=== PATIENT | female | born 1935 | race African-American/Black ===

== ENCOUNTER 2019-06-11 15:53 | Inpatient (IN) | payer OTHER ==
[~2019-06-11] VITALS: Ht 167.6 cm; Wt 65.5 kg
[2019-06-11] VITALS (9 sets, daily range): BP systolic 88–136; BP diastolic 35–71
[2019-06-11 16:19] LABS: BE(vivo) -12.7 mmol/L (-2 to +3); HCO3 11.7 mmol/L (22.0-26.0); PO2 76.4 mmHg (80.0-100.0); sO2 94.9 % (92.0-98.0)
[2019-06-11 16:20] LABS: PCO2 22.1 mmHg (35.0-45.0)
[2019-06-11 16:35] LABS: ABSOLUTE NEUTROPHILS 4.8 thou/uL (1.4-8.2); BASOPHILS 0.4 % (0.0-2.0); EOSINOPHILS 0.3 % (0.0-3.0); HEMATOCRIT 23.4 % (37.0-47.0); HEMOGLOBIN 7.3 gm/dL (12.0-15.0); LYMPHOCYTES 18.2 % (24.0-44.0); MCH 25.8 pg (26.0-34.0); MCHC 31.1 g/dL (28.0-37.0); MCV 83.1 fL (80.0-100.0); MONOCYTES 8.4 % (1.0-8.0); PLATELET COUNT 381 thou/uL (150-400); POLYS 72.7 % (36.0-66.0); RBC 2.82 mil/uL (4.20-5.00); RDW 18.6 % (10.5-14.5); WBC 6.6 thou/uL (4.0-11.0)
[2019-06-11 17:00] LABS: CALCIUM 9.1 mg/dL (8.5-10.1); CREATININE 1.5 mg/dL (0.6-1.0); POTASSIUM 4.5 mmol/L (3.5-5.1)
[2019-06-11 17:07] LABS: ALBUMIN 3.4 g/dL (3.4-5.0); TOTAL BILIRUBIN 0.4 mg/dL (<0.1-1.0)
[2019-06-11 17:18] LABS: TROPONIN-I 6.42 ng/mL (<0.06)
[2019-06-11 19:58] LABS: BE(vivo) -21.5 mmol/L (-2 to +3); HCO3 7.6 mmol/L (22.0-26.0)
[2019-06-11 19:59] LABS: pH 7.024 (7.360-7.450)
[2019-06-11 21:01] LABS: CALCIUM 7.4 mg/dL (8.5-10.1); CREATININE 1.5 mg/dL (0.6-1.0); POTASSIUM 4.7 mmol/L (3.5-5.1)
--- NOTE | 2019-06-11 21:02 | 2DMMODE ---
[facility] [address] [place] [address] 2 D/M-MODE ECHOCARDIOGRAM Name: ROSAS WALDEN Room #: 170-1 ADM IN M.R.#: [id number] Admission: 06/11/19 Attend Phys: Azam Flowers MD Discharge: Date of : 33 Report #: [id number] THIS REPORT FOR: cc: FAM - No family physician/PCP FAM - No family physician/PCP Stefan Cameron MD ~ APPROVED REPORT Study performed: 06/11/2019 19:41:24 EXAM: Comprehensive 2D, Doppler, and color-flow Echocardiogram Patient Location: Bedside Room #: ER Status: stat BSA: 1.70 HR: 76 bpm BP: 84/45 mmHg Rhythm: NSR Other Information Study Quality: Adequate Risk Factors: Cardiac Risk Factors: HTN, DM Indications Congestive Heart Failure Sepsis Dyspnea 2D Dimensions IVSd: 10.03 (7-11mm) LVOT Diam: 16.00 (18-24mm) LVDd: 45.77 mm PWd: 9.66 (7-11mm) Ascending Ao: 31.19 (22-36mm) LVDs: 37.87 (25-40mm) Aortic Root: 30.69 mm LV Single Plane 4CH: 51.81 % LV Single Plane 2CH: 54.41 % Biplane EF: 54.4 % Volumes Left Atrial Volume (Systole) Single Plane 4CH: 73.06 mL Single Plane 2CH: 64.37 mL LA ESV Index: 44.00 mL/m2 [facility] [address] [place] [address] 2 D/M-MODE ECHOCARDIOGRAM Name: ROSAS WALDEN Room #: 170-1 ADM IN M.R.#: [id number] Admission: 06/11/19 Attend Phys: Talia Fraire Discharge: Date of : 33 Report #: [id number] Mitral Valve E/A Ratio: 2.4 MV Decel. Time: 202.57 ms MV E Max Satnam.: 1.25 m/s MV A Satnam.: 0.53 m/s MV PHT: 58.75 ms IVRT: 51.90 ms TDI E/Lateral E': 25.00 E/Medial E': 17.86 Medial E' Satnam.: 0.07 m/s Lateral E' Satnam.: 0.05 m/s Pulmonary Valve PV Peak Satnam.: 0.73 m/s PV Peak Gr.: 2.13 mmHg Pulmonary Vein P Vein S: 0.49 m/s P Vein A: 0.27 m/s P Vein D: 0.54 m/s P Vein A Dur.: 107.3 msec P Vein S/D Ratio: 0.91 Tricuspid Valve TR Peak Satnam.: 2.99 m/s TR Peak Gr.: 35.69 mmHg Left Ventricle The left ventricle is normal size. There is normal LV segmental wall motion. There is normal left ventricular wall thickness. Left ventricular systolic function is borderline. LVEF is 50-55%. Moderate diastolic dysfunction is present (pseudonormal filling). Right Ventricle The right ventricle is normal size. The right ventricular systolic function is normal. Atria Left atrium is moderately dilated. The right atrium size is normal. Aortic Valve The Aortic valve is mildly sclerotic. No aortic regurgitation is present. There is no aortic valvular stenosis. Mitral Valve There is mitral annular calcification. Severe mitral regurgitation. [facility] [address] [place] [address] 2 D/M-MODE ECHOCARDIOGRAM Name: ROSAS WALDEN Room #: 170-1 ADM IN M.R.#: [id number] Admission: 06/11/19 Attend Phys: Talia Fraire Discharge: Date of : 33 Report #: [id number] No evidence of mitral valve stenosis. Tricuspid Valve The tricuspid valve is normal in structure. Moderate to severe tricuspid regurgitation. The tricuspid reguirgitant jet measures 36 mmHg. Unable to assess PA pressure. Pulmonic Valve The pulmonary valve is normal in structure. Mild pulmonic regurgitation. Great Vessels The aortic root is normal in size. The ascending aorta is normal in size. IVC is normal in size. Pt. is on ventilator. Pericardium There is no pericardial effusion. Large pleural effusion is noted. <Conclusion> The left ventricle is normal size. LVEF is 50-55%. Left atrium is moderately dilated. The Aortic valve is mildly sclerotic. There is mitral annular calcification. Severe mitral regurgitation. The tricuspid valve is normal in structure. Moderate to severe tricuspid regurgitation. The tricuspid reguirgitant jet measures 36 mmHg. Unable to assess PA pressure. There is no pericardial effusion. Large pleural effusion is noted. <ELECTRONICALLY SIGNED> By: Stefan Cameron MD 06/11/192099 99 99 Stefan Cameron MD /INF
[2019-06-11 21:24] LABS: BE(vivo) -20.5 mmol/L (-2 to +3); HCO3 9.3 mmol/L (22.0-26.0); PCO2 36.8 mmHg (35.0-45.0); PO2 86.7 mmHg (80.0-100.0); sO2 91.3 % (92.0-98.0)
[2019-06-11 21:25] LABS: pH 7.021 (7.360-7.450)
[2019-06-11 21:45] LABS: URINE BILIRUBIN NEGATIVE (Negative); URINE BLOOD NEGATIVE (Negative); URINE CLARITY CLOUDY; URINE COLOR YELLOW; URINE GLUCOSE-RANDOM* NEGATIVE (Negative); URINE KETONES TRACE (Negative); URINE LEUKOCYTES-REFLEX NEGATIVE (Negative); URINE NITRITE-REFLEX NEGATIVE (Negative); URINE PROTEIN (DIPSTICK) 3+ (Negative); URINE SPECIFIC GRAVITY >= 1.030 (1.005-1.035); URINE UROBILINOGEN 0.2 E.U./dl (0.2-1.0)
[2019-06-11 21:56] LABS: BACTERIA-REFLEX 1-9 Few /HPF (None Seen); SQUAMOUS 0-3 Few /LPF (0-3); URINE RBC 0-2 Rare /HPF (0-2); URINE WBC-REFLEX 0-5 Rare /HPF (0-5)
[2019-06-11 21:57] LABS: AMORPHOUS URATES Moderate /LPF (None Seen); HYALINE CASTS 0-3 Few /LPF (None Seen); MUCUS 4-6 Moderate strn/LPF (None Seen)
[2019-06-11 22:13] LABS: CALCIUM 7.7 mg/dL (8.5-10.1); CREATININE 1.7 mg/dL (0.6-1.0); POTASSIUM 3.9 mmol/L (3.5-5.1)
[2019-06-11 22:47] LABS: INR 1.1
[2019-06-11 23:17] LABS: INR 1.3; PROTIME 12.9 Seconds (9.3-11.4)
[2019-06-11 23:22] LABS: HEMATOCRIT 24.8 % (37.0-47.0); HEMOGLOBIN 7.6 gm/dL (12.0-15.0)
[2019-06-12] VITALS (96 sets, daily range): BP systolic 99–159; BP diastolic 30–77
[2019-06-12 00:09] LABS: BE(vivo) -17.3 mmol/L (-2 to +3); HCO3 9.8 mmol/L (22.0-26.0); PCO2 27.9 mmHg (35.0-45.0); PO2 185.7 mmHg (80.0-100.0); pH 7.165 (7.360-7.450); sO2 98.9 % (92.0-98.0)
[2019-06-12 01:28] LABS: CALCIUM 7.9 mg/dL (8.5-10.1); CREATININE 1.8 mg/dL (0.6-1.0)
[2019-06-12 05:06] LABS: HEMATOCRIT 28.3 % (37.0-47.0); MCH 27.4 pg (26.0-34.0); MCV 85.7 fL (80.0-100.0); RBC 3.3 mil/uL (4.20-5.00); RDW 19.2 % (10.5-14.5); WBC 17.2 thou/uL (4.0-11.0)
[2019-06-12 05:17] LABS: BE(vivo) -6.6 mmol/L (-2 to +3); HCO3 16.8 mmol/L (22.0-26.0); PCO2 26.4 mmHg (35.0-45.0); PO2 198.9 mmHg (80.0-100.0); pH 7.421 (7.360-7.450); sO2 99.4 % (92.0-98.0)
[2019-06-12 07:37] LABS: CALCIUM 7.6 mg/dL (8.5-10.1); CREATININE 1.6 mg/dL (0.6-1.0); POTASSIUM 3.8 mmol/L (3.5-5.1)
[2019-06-12 11:05] LABS: HEMATOCRIT 28.7 % (37.0-47.0); HEMOGLOBIN 9.4 gm/dL (12.0-15.0)
[2019-06-12 17:12] LABS: BE(vivo) -2.9 mmol/L (-2 to +3); HCO3 19.9 mmol/L (22.0-26.0); PCO2 28.2 mmHg (35.0-45.0); PO2 150.4 mmHg (80.0-100.0); pH 7.467 (7.360-7.450); sO2 99.1 % (92.0-98.0)
[2019-06-12 21:18] LABS: HEMATOCRIT 28.1 % (37.0-47.0)
[2019-06-12 21:21] LABS: CALCIUM 7.4 mg/dL (8.5-10.1); CREATININE 1.3 mg/dL (0.6-1.0)
[2019-06-12 21:23] LABS: POTASSIUM 2.8 mmol/L (3.5-5.1)
[2019-06-13] VITALS (48 sets, daily range): BP systolic 109–145; BP diastolic 54–83
[2019-06-13 05:50] LABS: HEMATOCRIT 28.3 % (37.0-47.0); HEMOGLOBIN 9.1 gm/dL (12.0-15.0); MCH 27.3 pg (26.0-34.0); MCHC 32.3 g/dL (28.0-37.0); MCV 84.5 fL (80.0-100.0); RBC 3.35 mil/uL (4.20-5.00); RDW 20.1 % (10.5-14.5); WBC 10.5 thou/uL (4.0-11.0)
[2019-06-13 06:13] LABS: CALCIUM 7.3 mg/dL (8.5-10.1); CREATININE 1.1 mg/dL (0.6-1.0); POTASSIUM 3.5 mmol/L (3.5-5.1)
[2019-06-13] MEDS ORDERED: FISH OIL 1,0001 EAC9 PO (11:20)
[2019-06-13] MEDS ORDERED: GLIPIZIDE 10 MG10 MG PO ×2 (11:21→11:26)
[2019-06-13] MEDS ORDERED: ACTOS15 MG PO (11:21)
[2019-06-13] MEDS ORDERED: NAPROSYN500 MG PO (11:22)
[2019-06-13] MEDS ORDERED: MELOXICAM15 MG PO (11:22)
[2019-06-13] MEDS ORDERED: SIMVASTATIN80 MG PO (11:23)
[2019-06-13] MEDS ORDERED: ADALAT CC60 MG PO (11:23)
[2019-06-13] MEDS ORDERED: HYDROCHLOROTHIA25 M2 PO (11:24)
[2019-06-13] MEDS ORDERED: SLOW FE142 MG PO (11:24)
[2019-06-13] MEDS ORDERED: ACCUPRIL40 MG PO (11:24)
[2019-06-13] MEDS ORDERED: METFORMIN HCL500 M3 PO (11:25)
[2019-06-13] MEDS ORDERED: ACTOS 30 MG TAB30 M1 PO (11:25)
[2019-06-14] VITALS (22 sets, daily range): BP systolic 103–154; BP diastolic 42–96
[2019-06-14 05:33] LABS: BE(vivo) -0.9 mmol/L (-2 to +3); HCO3 22.3 mmol/L (22.0-26.0); PCO2 31.6 mmHg (35.0-45.0); PO2 105.3 mmHg (80.0-100.0); pH 7.467 (7.360-7.450); sO2 98.2 % (92.0-98.0)
[2019-06-14 05:38] LABS: CALCIUM 7.7 mg/dL (8.5-10.1)
[2019-06-14 05:39] LABS: POTASSIUM 2.8 mmol/L (3.5-5.1)
[2019-06-14 08:32] LABS: HEMOGLOBIN 9.5 gm/dL (12.0-15.0); MCH 27.1 pg (26.0-34.0); MCHC 31.6 g/dL (28.0-37.0); MCV 85.8 fL (80.0-100.0); RBC 3.5 mil/uL (4.20-5.00); RDW 20.4 % (10.5-14.5); WBC 11.2 thou/uL (4.0-11.0)
[2019-06-14 10:45] LABS: BE(vivo) -1.9 mmol/L (-2 to +3); HCO3 21.8 mmol/L (22.0-26.0); PCO2 33.5 mmHg (35.0-45.0); PO2 105.7 mmHg (80.0-100.0); pH 7.432 (7.360-7.450)
[2019-06-14 16:49] LABS: CALCIUM 7.8 mg/dL (8.5-10.1); CREATININE 0.9 mg/dL (0.6-1.0); MAGNESIUM 1.4 mg/dL (1.8-2.4); POTASSIUM 3.5 mmol/L (3.5-5.1)
[2019-06-14 22:32] LABS: MAGNESIUM 1.7 mg/dL (1.8-2.4); POTASSIUM 3.8 mmol/L (3.5-5.1)
[2019-06-15] VITALS (27 sets, daily range): BP systolic 117–164; BP diastolic 45–89
[2019-06-15 05:30] LABS: HEMATOCRIT 27.8 % (37.0-47.0); HEMOGLOBIN 8.9 gm/dL (12.0-15.0); MCH 27.2 pg (26.0-34.0); RBC 3.27 mil/uL (4.20-5.00); RDW 20.6 % (10.5-14.5)
[2019-06-15 06:05] LABS: CALCIUM 7.6 mg/dL (8.5-10.1); CREATININE 0.9 mg/dL (0.6-1.0); POTASSIUM 3.6 mmol/L (3.5-5.1)
[2019-06-16] VITALS (22 sets, daily range): BP systolic 114–151; BP diastolic 52–82
[2019-06-16 05:27] LABS: HEMATOCRIT 29.3 % (37.0-47.0); HEMOGLOBIN 9.4 gm/dL (12.0-15.0); MCH 27.3 pg (26.0-34.0); MCHC 32.1 g/dL (28.0-37.0); MCV 85.1 fL (80.0-100.0); RBC 3.44 mil/uL (4.20-5.00); RDW 20.7 % (10.5-14.5); WBC 7.7 thou/uL (4.0-11.0)
[2019-06-16 10:41] LABS: CALCIUM 8.6 mg/dL (8.5-10.1); CREATININE 0.9 mg/dL (0.6-1.0); POTASSIUM 3.2 mmol/L (3.5-5.1)
--- NOTE | 2019-06-16 16:46 | P ---
[facility] [address] [address] PROCEDURE REPORT Name: ROSAS WALDEN Room #: [facility] IN M.R.#: [id number] Admission: 06/11/19 Attend Phys: Azam Flowers MD Discharge: Date of : 33 Report #: [id number] THIS REPORT FOR: cc: NESSA - No family physician/PCP NESSA - No family physician/PCP Simone Potter MD ~ CC: Azam Torres [facility] physician/PCP Stefan Reyes INPATIENT UPPER ENDOSCOPY REPORT BRIEF HISTORY: The patient is an 84-year-old woman who was found down at home with evidence of hematemesis. She also had a non-ST segment myocardial infarction. She has been on a pantoprazole drip. She is in the Intensive Care Unit on a ventilator with plans to wean and remove her from the ventilator soon. GI evaluation was requested prior to extubation. PREOPERATIVE DIAGNOSIS: Upper gastrointestinal bleeding. POSTOPERATIVE DIAGNOSES: 1. Nonbleeding duodenal channel ulcer. 2. Moderately severe diffuse gastritis, possibly atrophic gastritis. MEDICATIONS: The patient is currently on propofol drip in Intensive Care Unit and sedated. No further sedation was given. SPECIMEN: Biopsies of gastric mucosa, rule out H. pylori. ESTIMATED BLOOD LOSS: 3 mL. PROCEDURE: EGD with biopsy. FINDINGS: The procedure was discussed with the patient's at the bedside. Potential risks, benefits and complications were discussed. She indicates she understands and desired that we proceed. DESCRIPTION OF PROCEDURE: The patient was intubated on a ventilator, supine in the bed with her head raised about 30 degrees. In addition to the endotracheal tube, there was an orogastric tube. Subsequently, the Olympus video endoscope was inserted in the cervical esophagus under direct vision without difficulty. Examination of this organ through its entire length revealed normal esophageal mucosa down the squamocolumnar junction. Squamocolumnar junction was inspected and noted to be unremarkable. No evidence of ulcers or erosions. There was no blood in the esophagus. A hiatus hernia was not seen. Scope was advanced in [facility] [address] [place] [address] PROCEDURE REPORT Name: ROSAS WALDEN Room #: 245-P [facility] IN M.R.#: [id number] Admission: 06/11/19 Attend Phys: Azam Flowers MD Discharge: Date of : 33 Report #: [id number] the stomach, which was examined on end view as well as retroflexed views. There was a moderately severe diffuse gastritis. She may have an atrophic gastritis as well. The mucosa was intact without evidence of ulcers or bleeding. There was no blood in the stomach. Upon retroflexion, no mass lesions were seen. The scope was advanced in the pylorus and when we get into the pylorus, there was a duodenal ulcer that was linear and extended probably 12-15 mm in the duodenal bulb, it was about 3-4 mm wide. The base was clean. There was no stigmata of bleeding. There was no blood or black material. No mass lesions were seen. Beyond that, the duodenum was completely normal down to the third portion. At that point, the scope was slowly withdrawn and careful circumferential views confirmed the above findings. The patient tolerated the procedure well. We also obtained biopsy of the gastritis. DISPOSITION: The patient with hematemesis. She clearly has a duodenal ulcer. I do not see stigmata of bleeding at this point in time. She has been on a pantoprazole continuous drip for several days. We will change her to IV push. It will be okay to resume tube feedings. We will obtain a KUB to check position of the NG tube as it potentially could have been displaced during the removal of the endoscope. In addition, suggest she return in 8-12 weeks for repeat EGD to ensure complete healing of her ulcer. Discussed with her . She had been using nonsteroidals. She should avoid use of nonsteroidals in the future. <ELECTRONICALLY SIGNED> By: Simone Potter MD 06/16/19 1646 [id number] [id number] Simone Potter MD /nt
[2019-06-17] VITALS (19 sets, daily range): BP systolic 119–162; BP diastolic 58–85
[2019-06-17 06:13] LABS: HEMATOCRIT 29.2 % (37.0-47.0); HEMOGLOBIN 9.2 gm/dL (12.0-15.0); MCH 26.6 pg (26.0-34.0); MCHC 31.4 g/dL (28.0-37.0); MCV 84.8 fL (80.0-100.0); RBC 3.45 mil/uL (4.20-5.00); RDW 20.1 % (10.5-14.5)
[2019-06-17 06:21] LABS: ALBUMIN 2.5 g/dL (3.4-5.0); CALCIUM 8.6 mg/dL (8.5-10.1); CREATININE 0.9 mg/dL (0.6-1.0); POTASSIUM 3.6 mmol/L (3.5-5.1); TOTAL BILIRUBIN 0.3 mg/dL (<0.1-1.0); TOTAL PROTEIN 5.6 g/dL (6.4-8.2)
[2019-06-17 10:44] LABS: BE(vivo) -1.1 mmol/L (-2 to +3); HCO3 22.4 mmol/L (22.0-26.0); PCO2 33.4 mmHg (35.0-45.0); PO2 115.8 mmHg (80.0-100.0); pH 7.444 (7.360-7.450); sO2 98.4 % (92.0-98.0)
--- NOTE | 2019-06-17 17:07 | PATH ---
[facility] [address] [place] [address] PATHOLOGY RPT PROCEDURE Name: ROSAS OLMSTEAD Room #: 245-P ADM IN M.R.#: [id number] Admission: 06/11/19 Date of : 33 Discharge: Report #: [id number] Path Case #: [id number] LCA Accession Number: [id number] . 01 Material submitted: . stomach - BX OF GASTRITIS . 01 Clinical history: . GI bleed, R/O H. pylori . 02 Diagnosis: Gastric mucosa, gastritis R/O H. pylori, endoscopic biopsy: - Mild chronic active gastritis with focal intestinal metaplasia. - Negative for atrophy or dysplasia. - Negative for Helicobacter pylori (properly controlled immunohistochemical stain performed). . (IUV:martha; 06/17/2019) QMS 06/17/2019 1132 Local . 02 Comment: An intensive search for Helicobacter pylori-like organisms is negative. Absence of such organisms does not entirely exclude the possibility and may be due to sampling. Other possible etiologies may include chemical gastritis, autoimmune gastritis, gastritis associated with inflammatory bowel disease. Please correlate with clinical, endoscopic, and microbiological studies if clinically indicated. (IUV:martha; 06/17/2019) . 02 Electronically signed: . Cony Conde MD, Pathologist NPI- [id number] . 01 Gross description: . The specimen is received in formalin, labeled "Rosas Olmstead, biopsy of gastritis to R/O H. pylori". Received are six segments of pale reyna soft tissue ranging in size from 0.2 to 0.4 cm in maximum dimensions. The specimen is submitted entirely in cassette A1. (CAA; 06/16/2019) QAC/QAC 06/16/2019 1109 Local . 02 Pathologist provided ICD-10: K29.50 . 02 CPT . 401724, N37061 Specimen Comment: A courtesy copy of this report has been sent to [phone] [address] PATHOLOGY RPT PROCEDURE Name: ROSAS OLMSTEAD Room #: [facility] IN M.R.#: [id number] Admission: 06/11/19 Date of : 33 Discharge: Report #: [id number] Path Case #: [id number] Specimen Comment: [id number] Specimen Comment: Report sent to and Performed at: [address], [place], [place] [id number] MD Ryland Martinez MD Phone: [phone] Performed at: [address] [id number] MD Cony Conde MD Phone: [phone]
[2019-06-18] VITALS (14 sets, daily range): BP systolic 118–157; BP diastolic 55–92
[2019-06-18 04:48] LABS: HEMATOCRIT 30.1 % (37.0-47.0); HEMOGLOBIN 9.5 gm/dL (12.0-15.0); MCH 26.8 pg (26.0-34.0); MCHC 31.5 g/dL (28.0-37.0); MCV 85.1 fL (80.0-100.0); RBC 3.53 mil/uL (4.20-5.00); RDW 20.5 % (10.5-14.5); WBC 7.4 thou/uL (4.0-11.0)
[2019-06-18 05:55] LABS: CREATININE 0.6 mg/dL (0.6-1.0); POTASSIUM 3.2 mmol/L (3.5-5.1)
[2019-06-19 00:08] VITALS: BP 138/57
[2019-06-19 04:08] VITALS: BP 150/67
[2019-06-19 07:26] LABS: CALCIUM 9.2 mg/dL (8.5-10.1); CREATININE 0.7 mg/dL (0.6-1.0); POTASSIUM 3.2 mmol/L (3.5-5.1)
[2019-06-19 08:08] VITALS: BP 159/74
[2019-06-19 14:31] VITALS: BP 134/57
[2019-06-19 20:00] VITALS: BP 138/57
[2019-06-19 23:26] VITALS: BP 130/55
[2019-06-20 04:26] VITALS: BP 159/66
[2019-06-20 07:30] VITALS: BP 148/66
[2019-06-20 11:15] VITALS: BP 121/43
[2019-06-20 17:00] VITALS: BP 129/52
[2019-06-20 19:55] VITALS: BP 131/51
[2019-06-21 05:40] VITALS: BP 126/68
[2019-06-21 07:24] LABS: CALCIUM 9.5 mg/dL (8.5-10.1); CREATININE 0.9 mg/dL (0.6-1.0); POTASSIUM 3.5 mmol/L (3.5-5.1)
[2019-06-21 08:13] VITALS: BP 136/75
[2019-06-21 08:14] LABS: HEMATOCRIT 33.9 % (37.0-47.0); HEMOGLOBIN 10.5 gm/dL (12.0-15.0); MCH 26.6 pg (26.0-34.0); MCV 85.9 fL (80.0-100.0); RBC 3.95 mil/uL (4.20-5.00); RDW 21.1 % (10.5-14.5); WBC 8.1 thou/uL (4.0-11.0)
[2019-06-21 12:04] VITALS: BP 114/54
[2019-06-21 16:26] VITALS: BP 127/51
[2019-06-21 19:51] VITALS: BP 114/46
[2019-06-22] VITALS (12 sets, daily range): BP systolic 121–158; BP diastolic 54–79
--- NOTE | 2019-06-22 07:22 | HC ---
[facility] [place] [address] CONSULTATION Name: ROSAS WALDEN Room #: 215-P ADM IN M.R.#: [id number] Admission: 06/11/19 Attend Phys: Azam Flowers MD Discharge: Date of : 33 Report #: [id number] THIS REPORT FOR: cc: NESSA - No family physician/PCP NESSA - No family physician/PCP Kuldip Rubi MD ~ CC: Azam Torres [facility] physician/PCP Stefan Reyes DATE OF SERVICE: 06/18/2019 CHIEF COMPLAINT: Left fifth toe ulceration. HISTORY OF PRESENT ILLNESS: This is an 84-year-old female patient who was admitted to the hospital on 06/11/2019. She was admitted with a non-ST segment elevated myocardial infarction, respiratory failure and sepsis. At some point, it was noted that she had some ulceration or color change to her left fifth toe. Her states that the toe had been giving her problems prior to her hospitalization. She is not able to provide much information about herself right now, but I have been asked to see her with regard to wound care issues. PAST MEDICAL HISTORY: Positive for history of GI bleeding, type 2 diabetes mellitus and hypertension. MEDICATIONS: Include albuterol, furosemide, glucagon, insulin, Mag-Ox, metoprolol, midazolam, morphine, Zofran, potassium, ferrous sulfate, fish oil, glipizide, hydrochlorothiazide, meloxicam, metformin, Naprosyn, nifedipine, pioglitazone, quinapril, simvastatin. ALLERGIES: No known drug allergies. SOCIAL HISTORY: Negative for alcohol or tobacco use. FAMILY HISTORY: Noncontributory. REVIEW OF SYSTEMS: Really not obtainable due to the patient's diminished level of consciousness. She moans and nods her head occasionally. Any pertinent review of systems are noted above in history of present illness. PHYSICAL EXAMINATION: VITAL SIGNS: At this time include temperature 36.3, pulse rate 100, respiratory rate of 13, blood pressure of 134/57. GENERAL: This is a chronically ill-appearing female patient who appears to be [facility] [address] [place] [address] CONSULTATION Name: ROSAS WALDEN Room #: 215-P [facility] IN M.R.#: [id number] Admission: 06/11/19 Attend Phys: Azam Flowers MD Discharge: Date of : 33 Report #: [id number] in minimal distress. HEENT: Head is normocephalic. Nose and throat are clear. NECK: Supple. HEART: Regular rhythm without murmur. LUNGS: Clear. ABDOMEN: Soft. Bowel sounds present. EXTREMITIES: Demonstrates some color change and some moist eschar on the dorsal medial aspect of the left fifth toe. It is not overtly infected, although palpation of this area does seem to elicit some pain. NEUROLOGIC: The patient is arousable, but not answering questions. She appears to move symmetrically. LABORATORY STUDIES: White blood cell count 7.4 with hemoglobin 9.5. Sodium 144, potassium 3.2, chloride 107, CO2 of 33, BUN 17, creatinine 0.6, glucose of 99, magnesium is 1.0, calcium is 8.0. Protime is 12.9, INR is 1.3. Albumin is 2.5. CLINICAL IMPRESSION: 1. Ulceration/ischemia to the left fifth toe. 2. Diabetes mellitus. 3. History of myocardial infarction. 4. Peripheral vascular disease by clinical examination. 5. Bilateral lower extremity edema, left greater than right. 6. Acute diastolic heart failure with severe mitral regurgitation. 7. Recent gastrointestinal bleed. 8. Acute renal failure, improving. 9. Moderate protein-calorie malnutrition. RECOMMENDATIONS: At this point in time, we will recommend Betadine paint to the left fifth toe. I will otherwise leave this area open to air. She will need PRAFO boots for pressure prophylaxis. I will recommend an arterial Doppler. Consider vascular intervention if significant findings are present. I reviewed findings and recommendations with the patient's . I appreciate being asked to see her in consultation. <ELECTRONICALLY SIGNED> By: Kuldip Rubi MD 06/22/19 0722 1857 0010 Kuldip Rubi MD /nt
[2019-06-23] VITALS: BP 131/54
[2019-06-23 04:00] VITALS: BP 146/63
[2019-06-23 04:08] LABS: HEMATOCRIT 29.2 % (37.0-47.0); HEMOGLOBIN 9.3 gm/dL (12.0-15.0); MCH 27.3 pg (26.0-34.0); MCHC 31.9 g/dL (28.0-37.0); MCV 85.3 fL (80.0-100.0); RBC 3.42 mil/uL (4.20-5.00); RDW 21.6 % (10.5-14.5); WBC 7.6 thou/uL (4.0-11.0)
[2019-06-23 04:33] LABS: CALCIUM 8.9 mg/dL (8.5-10.1); CREATININE 0.9 mg/dL (0.6-1.0); POTASSIUM 3.1 mmol/L (3.5-5.1)
[2019-06-23 07:30] VITALS: BP 166/72
[2019-06-23 11:15] VITALS: BP 127/49
[2019-06-23 16:30] VITALS: BP 136/60
[2019-06-23 20:27] VITALS: BP 126/42
[2019-06-24 05:05] VITALS: BP 153/77
[2019-06-24 05:36] LABS: CALCIUM 8.6 mg/dL (8.5-10.1); CREATININE 0.8 mg/dL (0.6-1.0); POTASSIUM 3.4 mmol/L (3.5-5.1)
[2019-06-24 07:00] VITALS: BP 144/62
[2019-06-24 11:30] VITALS: BP 113/52
[2019-06-24 16:52] LABS: MAGNESIUM 1.1 mg/dL (1.8-2.4); POTASSIUM 3.6 mmol/L (3.5-5.1)
[2019-06-24 17:00] VITALS: BP 128/53
[2019-06-24 20:26] VITALS: BP 122/47
[2019-06-25 05:20] VITALS: BP 129/59
[2019-06-25 05:58] LABS: CALCIUM 8.5 mg/dL (8.5-10.1); CREATININE 0.9 mg/dL (0.6-1.0); MAGNESIUM 1.2 mg/dL (1.8-2.4); POTASSIUM 3.4 mmol/L (3.5-5.1)
[2019-06-25 07:30] VITALS: BP 134/54
[2019-06-25 11:30] VITALS: BP 140/46
--- NOTE | 2019-06-25 13:35 | CATHLAB ---
[facility] [place] [address] [address] [place] [address] INVASIVE PROCEDURE REPORT Name: ROSAS WALDEN Room #: 215-P ADM IN M.R.#: [id number] Admission: 06/11/19 Attend Phys: Azam Flowers MD Discharge: Date of : 33 Report #: [id number] THIS REPORT FOR: cc: FAM - No family physician/PCP FAM - No family physician/PCP Stefan Cameron MD ~ APPROVED REPORT Study performed: 06/22/2019 16:38:56 Patient Details The patient is a 84 year-old female Event Personnel Stefan Cameron Nonprofit Manager, Tena Celeste RN RN, Atilio Rodgers Monitor, Jemma James RN RN, Gloria Alejo Scrub, Tabitha Huston RTR, TERESA Scrub, Finesse Sims RTR Monitor, Tena Celeste RN wire chief Performed Left Heart Catheterization, 6 fr Mynx Control Indication Chest pain Procedure Narrative A 6 fr 11cm cordis sheath was inserted into the RFA^. Coronary angiography was performed using coronary diagnostic catheters. The right coronary system was accessed and visualized with a JR4 catheter. The left coronary system was accessed and visualized with a JL4 catheter. The left ventricle was accessed and visualized with a JR4 catheter. Closure device was deployed with a 6 Fr MYNX CONTROL 6F/7F L#[id number]. The patient tolerated the procedure well and there were no complications associated with the procedure. There was no hematoma. Intraoperative Conscious Sedation Sedation start time: 1628 Case end Time: 1724 Fentanyl mcg Versed mg No additonal sedation was given after renal stent placement with dr Rodrigez Fluoro Time: 1.23 minutes [facility] [address] [place] [address] INVASIVE PROCEDURE REPORT Name: ROSAS WALDEN Room #: 215-P [facility] IN .R.#: [id number] Admission: 06/11/19 Attend Phys: Talia Fraire Discharge: Date of : 33 Report #: [id number] Dose: DAP 1298.80 cGycm2 200 mGy Contrast Type and Amount: Omnipaque 20 ml Diagnostic Cath Left Main Normal origin and caliber. It bifurcates left anterior descending left circumflex. Has a eccentric ostial lesion of at least 75% stenosis. The distal portion has a mild 30% plaque. LAD Moderate caliber type II vessel. Heavily calcified on fluoroscopy. There is a proximal portion that appears to be tapered of less than 50%. It then continues in the anterior interventricular sulcus to septal and diagonal branches. Moderate luminal irregularities are noted in the mid portion but otherwise mild irregularities as it reaches the apex and trifurcates is a terminal branch Diagonal 1 Small-caliber vessel with moderate irregularities Circumflex Totally occluded proximally. OM2 Fills retrograde from collaterals faintly Right Coronary Multiple moderate caliber vessel of normal origin. Has diffuse moderate irregularities but his course. He proceeds posteriorly giving rise to posterior descending artery and small posterior wall branch. R PDA Small-caliber vessel with moderate irregularities throughout its entire course. Ramus Small caliber vessel has a subtotal ostial lesion arising from the left main. It is tortuous in its proximal course Left Ventriculography Left Ventriculography was not performed. Hemodynamics The aortic pressure is 185/80 mmHg with a mean of 103 mmHg. The left ventricular pressure is 152/16 mmHg with a mean of mmHg. The left ventricular end diastolic pressure is 35 mmHg. PCI Technique Lesion Percutaneous coronary intervention was performed on the Left Renal. Conclusion 1. Severe multivessel coronary artery disease including a high-grade proximal left main stenosis 2. Abnormal hemodynamics with elevated left ventricular end-diastolic pressures Recommendations [facility] [address] [place] [address] INVASIVE PROCEDURE REPORT Name: ROSAS WALDEN Room #: 215-P ADM IN M.R.#: [id number] Admission: 06/11/19 Attend Phys: Talia Fraire Discharge: Date of : 33 Report #: [id number] We'll discuss with patient and family the options of percutaneous versus surgical revascularization. We'll have a surgical opinion for the suitability of the patient for surgical revascularization. We'll plan according to recommendations of surgery and patient and family's desires and wishes. <ELECTRONICALLY SIGNED> By: Stefan Cameron MD 06/25/19 1334 1334 133 Stefan Cameron MD /INF
[2019-06-25 16:30] VITALS: BP 119/59
[2019-06-25 17:54] LABS: MAGNESIUM 1.2 mg/dL (1.8-2.4); POTASSIUM 4.2 mmol/L (3.5-5.1)
[2019-06-25 19:36] VITALS: BP 120/49
[2019-06-26 04:17] VITALS: BP 145/58
[2019-06-26 06:53] LABS: CALCIUM 9.2 mg/dL (8.5-10.1); MAGNESIUM 1.3 mg/dL (1.8-2.4); POTASSIUM 4.4 mmol/L (3.5-5.1)
[2019-06-26 07:45] VITALS: BP 163/47
[2019-06-26 08:00] VITALS: BP 143/65
[2019-06-26 12:30] VITALS: BP 125/63
[2019-06-26 17:40] VITALS: BP 146/67
[2019-06-27] VITALS (7 sets, daily range): BP systolic 126–144; BP diastolic 50–61
[2019-06-27 05:16] LABS: CALCIUM 8.4 mg/dL (8.5-10.1); CREATININE 0.9 mg/dL (0.6-1.0); MAGNESIUM 1.8 mg/dL (1.8-2.4); POTASSIUM 3.5 mmol/L (3.5-5.1)
[2019-06-28 04:57] VITALS: BP 143/72
[2019-06-28 08:00] VITALS: BP 137/51
--- NOTE | 2019-06-28 08:46 | HC ---
[facility] [place] [address] CONSULTATION Name: ROSAS WALDEN Room #: 215-P ADM IN M.R.#: [id number] Admission: 06/11/19 Attend Phys: Azam Flowers MD Discharge: Date of : 33 Report #: [id number] THIS REPORT FOR: cc: NESSA - No family physician/PCP NESSA - No family physician/PCP Simone Mccurdy MD ~ CC: Azam SZYMANSKI physician/PCP Stefan Reyes DATE OF SERVICE: 06/22/2019 We were asked by Dr. Cameron to see the patient. HISTORY OF PRESENT ILLNESS: The patient is an 84-year-old admitted through the Emergency Department on 06/11 with shortness of breath. The patient describes this as "falling out." The patient states she had had shortness of breath and chest pain at home for a week. According to the notes, when the EMS arrived at the scene, the patient was lying in her stool in bed, diaphoretic with an O2 sat of 68% on room air that increased to 98% on oxygen therapy. The patient was tachycardic, but had normal blood pressure at that time. The patient was admitted to the ER and intubated and had a central line placed that evening. PAST MEDICAL HISTORY: Significant for GI bleed, type 2 diabetes mellitus and hypertension. MEDICATIONS IN THE HOSPITAL: Included albuterol, Lasix, insulin, metoprolol, morphine, iron, glipizide, hydrochlorothiazide, meloxicam, metformin, Naprosyn, nifedipine, pioglitazone, quinapril and simvastatin. ALLERGIES: None known. FAMILY HISTORY: Not contributory. REVIEW OF SYSTEMS: Not obtainable at the time of admission. The patient states she is doing much better since that time in the hospital. PHYSICAL EXAMINATION: VITAL SIGNS: Temperature 37.1, heart rate 86, respiratory rate 18, blood pressure 127/49. GENERAL: The patient is in bed, seems comfortable, but relatively low energy. Answers questions appropriately. [facility] [address] [place] [address] CONSULTATION Name: ROSAS WALDEN Room #: [address] [place] [address] IN M.R.#: [id number] Admission: 06/11/19 Attend Phys: Azam Flowers MD Discharge: Date of : 33 Report #: [id number] HEENT: No scleral icterus. Pupils are round, equal. NECK: No mass. I do not hear any bruits. CHEST: Clear to auscultation. HEART: Rhythm regular with a loud systolic murmur at the left sternal border suggestive of mitral incompetence. ABDOMEN: Soft. EXTREMITIES: The patient has feet wrapped and has pressure relieving booties on. NEUROLOGIC: No motor or sensory dysfunction. MUSCULOSKELETAL: No obvious bone or joint asymmetry or deformity. No clubbing or cyanosis. Trace pedal edema. HOSPITAL COURSE: We note that the patient was intubated on admission and remained so for approximately a week. The patient had evidence of a non-STEMI and cardiac catheterization was done by Dr. Cameron that shows a total occlusion of the circumflex, right coronary has aytv-ya-bqhclkma diffuse disease and left main has approximately 75% proximal lesion. Lower extremity arteriography was also done and this shows infrapopliteal occlusive disease. I discussed the case with Dr. Cameron and the patient has severe coronary and peripheral vascular disease. The patient has multiple medical issues and I think with her advanced age and comorbid factors angioplasty would be a less morbid and possibly safer intervention for the patient with good ventricular function. We are likely to get the patient through surgery safely; however, I would anticipate a prolonged hospital course and would expect a prolonged stay in a halfway or rehabilitation unit, at which time some of the other comorbid factors might become more significant. At this point, I think surgery is not in the patient's best interest. Thank you for the consult. <ELECTRONICALLY SIGNED> By: Simone Mccurdy MD 06/28/19 0846 1234 1940 Simone Mccurdy MD /nt
[2019-06-28 09:54] LABS: MAGNESIUM 1.5 mg/dL (1.8-2.4)
[2019-06-28 11:30] VITALS: BP 132/47
[2019-06-28 16:18] VITALS: BP 132/59
[2019-06-28 20:30] VITALS: BP 132/72; BP 136/48
[2019-06-29 04:45] VITALS: BP 153/73
[2019-06-29 07:20] VITALS: BP 156/78
[2019-06-29 10:16] LABS: HEMATOCRIT 33.3 % (37.0-47.0); HEMOGLOBIN 10.4 gm/dL (12.0-15.0); MCH 27.1 pg (26.0-34.0); MCHC 31.1 g/dL (28.0-37.0); MCV 87.1 fL (80.0-100.0); RBC 3.82 mil/uL (4.20-5.00); RDW 22.2 % (10.5-14.5)
[2019-06-29 10:25] LABS: CALCIUM 9.1 mg/dL (8.5-10.1); CREATININE 0.9 mg/dL (0.6-1.0); POTASSIUM 4.3 mmol/L (3.5-5.1)
[2019-06-29 11:30] VITALS: BP 153/72
[2019-06-29 16:00] VITALS: BP 136/52
[2019-06-29 19:48] VITALS: BP 117/44
[2019-06-30 03:59] VITALS: BP 132/48
[2019-06-30 05:22] LABS: HEMATOCRIT 26.9 % (37.0-47.0); HEMOGLOBIN 8.7 gm/dL (12.0-15.0); MCH 27.5 pg (26.0-34.0); MCHC 32.4 g/dL (28.0-37.0); MCV 84.7 fL (80.0-100.0); RBC 3.18 mil/uL (4.20-5.00); RDW 21.9 % (10.5-14.5); WBC 5.5 thou/uL (4.0-11.0)
[2019-06-30 05:33] LABS: CALCIUM 8.5 mg/dL (8.5-10.1); CREATININE 0.8 mg/dL (0.6-1.0); MAGNESIUM 1.4 mg/dL (1.8-2.4); POTASSIUM 3.4 mmol/L (3.5-5.1)
[2019-06-30 09:23] VITALS: BP 158/75
[2019-06-30 11:56] VITALS: BP 150/63
[2019-06-30 16:47] VITALS: BP 136/60
[2019-06-30 20:10] VITALS: BP 132/45
[2019-07-01 00:15] VITALS: BP 116/47
[2019-07-01 04:45] VITALS: BP 139/54
[2019-07-01 08:15] LABS: MAGNESIUM 1.3 mg/dL (1.8-2.4); POTASSIUM 3.8 mmol/L (3.5-5.1)
[2019-07-01 08:18] VITALS: BP 155/54
--- NOTE | 2019-07-01 08:25 | EKG ---
[facility] [place] [address] ELECTROCARDIOGRAM REPORT Name: ROSAS WALDEN Room #: 215-P ADM IN M.R.#: [id number] Admission: 06/11/19 Attend Phys: Azam Flowers MD Discharge: Date of : 33 Report #: [id number] THIS REPORT FOR: cc: NESSA - Skylar family physician/PCP NESSA - Skylar family physician/PCP Mookie Washington MD [facility] THIS REPORT FOR: //name// [facility] Test Date: 2019-07-01 Test Time: 07:28:21 Pat Name: ROSAS WALDEN Department: Room: 215 Gender: F Basket Braider: Nelly LAO : 1935 Requested By: Jacqueline Echeverria Order Number: [id number] MD: Mookie Washington Measurements Intervals [place] Rate: 85 P: 71 IN: 142 QRS: -47 QRSD: 115 T: 51 QT: 442 QTc: 526 Interpretive Statements Sinus rhythm LAD, consider left anterior fascicular block Compared to ECG 06/14/2019 07:43:24 Sinus tachycardia no longer present Electronically Signed On 07-01-2019 8:23:57 IN FLIGHT TECHNICIAN by Mookie Washington [email or web address] <ELECTRONICALLY SIGNED> By: Mookie Washington MD, [facility] 07/01/19 0823 0728 Mookie Washington MD, [facility] /EPI
[2019-07-01 09:01] LABS: HEMATOCRIT 30.8 % (37.0-47.0); HEMOGLOBIN 9.8 gm/dL (12.0-15.0); MCH 27.2 pg (26.0-34.0); MCHC 31.9 g/dL (28.0-37.0); MCV 85.2 fL (80.0-100.0); RBC 3.61 mil/uL (4.20-5.00); RDW 21.7 % (10.5-14.5); WBC 9.1 thou/uL (4.0-11.0)
[2019-07-01 09:04] LABS: CALCIUM 8.5 mg/dL (8.5-10.1); CREATININE 0.9 mg/dL (0.6-1.0); POTASSIUM 3.8 mmol/L (3.5-5.1)
[2019-07-01 11:04] VITALS: BP 125/37
[2019-07-01] MEDS ORDERED: CLOPIDOGREL75 MG PO (12:16)
[2019-07-01] MEDS ORDERED: LOPRESSOR25 PER TUBE (12:17)
[2019-07-01] MEDS ORDERED: PROTONIX40 M1 PO (12:29)
[2019-07-01] MEDS ORDERED: TORSEMIDE20 MG PO (12:29)
[2019-07-01] MEDS ORDERED: ASA81BEC PO (12:30)
[2019-07-01] MEDS ORDERED: LIPITOR40 MG PO (12:31)
--- NOTE | 2019-07-03 15:25 | EKG ---
[facility] [place] [address] ELECTROCARDIOGRAM REPORT Name: ROSAS WALDEN Room #: 215-P [facility] IN M.R.#: [id number] Admission: 06/11/19 Attend Phys: Azam Flowers MD Discharge: 07/01/19 Date of : 33 Report #: [id number] THIS REPORT FOR: cc: NESSA - No family physician/PCP FAM - No family physician/PCP Juancarlos Barajas MD ~ THIS REPORT FOR: //name// [facility] Test Date: 2019-06-12 Test Time: 08:50:51 Pat Name: ROSAS WALDEN Department: Room: [facility] P Gender: F Machine Printer: OLEKSANDR : 1935 Requested By: Stefan Cameron Order Number: [id number] MD: Juancarlos Barajas Measurements Intervals [place] Rate: 102 P: 44 MS: 134 QRS: -50 QRSD: 109 T: 180 QT: 354 QTc: 462 Interpretive Statements Sinus tachycardia LAD, consider left anterior fascicular block Abnormal R-wave progression, late transition Abnormal T, consider ischemia, lateral leads Compared to ECG 06/11/2019 17:30:51 Electronically Signed On 06-12-2019 11:28:26 LEGAL RECEPTIONIST by Juancarlos Barajas [email or web address] <ELECTRONICALLY SIGNED> By: Juancarlos Barajas MD 06/12/19 1128 0850 Juancarlos Barajas MD /EPI
--- NOTE | 2019-07-03 15:25 | EKG ---
[facility] [place] [address] ELECTROCARDIOGRAM REPORT Name: ROSAS WALDEN Room #: 215-P [facility] IN M.R.#: [id number] Admission: 06/11/19 Attend Phys: Azam Flowers MD Discharge: 07/01/19 Date of : 33 Report #: [id number] THIS REPORT FOR: cc: FAM - No family physician/PCP FAM - No family physician/PCP Mookie Washington MD [facility] ~ THIS REPORT FOR: //name// [facility] ED Test Date: 2019-06-11 Test Time: 17:30:51 Pat Name: ROSAS WALDEN Department: Room: [facility] Gender: F Sales Project Coordinator: [place] : 1935 Requested By: Mela Hare Order Number: [id number] MD: Mookie Washington Measurements Intervals [place] Rate: 96 P: 63 ID: 137 QRS: -45 QRSD: 129 T: 148 QT: 373 QTc: 472 Interpretive Statements Sinus rhythm Nonspecific IVCD with LAD Repolarization abnormality, consider ischemia No previous ECG available for comparison Electronically Signed On 06-12-2019 8:04:43 PRECAST MOLDER by Mookie Washington [email or web address] <ELECTRONICALLY SIGNED> By: Mookie Washington MD, FACC 06/12/19 0804 1730 1730 Mookie Washington MD, [facility] /EPI
--- NOTE | 2019-07-03 15:25 | EKG ---
[facility] [place] [address] ELECTROCARDIOGRAM REPORT Name: ROSAS WALDEN Room #: 215-P [facility] IN M.R.#: [id number] Admission: 06/11/19 Attend Phys: Azam Flowers MD Discharge: 07/01/19 Date of : 33 Report #: [id number] THIS REPORT FOR: cc: NESSA - No family physician/PCP FAM - No family physician/PCP Mookie Washington MD [facility] ~ THIS REPORT FOR: //name// [facility] ED Test Date: 2019-06-11 Test Time: 16:00:21 Pat Name: ROSAS WALDEN Department: Room: [facility] Gender: F Steel Rule Die Maker: NETTE : 1935 Requested By: Mela Hare Order Number: [id number] MD: Mookie Washington Measurements Intervals [place] Rate: 106 P: 80 MN: 139 QRS: -48 QRSD: 132 T: 168 QT: 367 QTc: 488 Interpretive Statements Sinus tachycardia Nonspecific IVCD with LAD Repol abnrm, severe global ischemia (LM/MVD) No previous ECG available for comparison Electronically Signed On 06-12-2019 8:01:29 LABEL PRINTER by Mookie Washington [email or web address] <ELECTRONICALLY SIGNED> By: Mookie Washington MD, FAC 06/12/19 0801 1600 1600 Mookie Washington MD, [facility] /EPI
--- NOTE | 2019-07-03 15:26 | EKG ---
[facility] [place] [address] ELECTROCARDIOGRAM REPORT Name: ROSAS WALDEN Room #: 215-P [facility] IN M.R.#: [id number] Admission: 06/11/19 Attend Phys: Azam Flowers MD Discharge: 07/01/19 Date of : 33 Report #: [id number] THIS REPORT FOR: cc: NESSA - Skylar family physician/PCP NESSA - No family physician/PCP Juancarlos Barajas MD ~ THIS REPORT FOR: //name// [facility] Test Date: 2019-06-14 Test Time: 07:43:24 Pat Name: ROSAS WALDEN Department: Room: [facility] P Gender: F Electronic Security Specialist: ROLY : 1935 Requested By: Juancarlos Barajas Order Number: [id number] MD: Juancarlos Barajas Measurements Intervals [place] Rate: 103 P: 64 OR: 144 QRS: -41 QRSD: 115 T: 126 QT: 378 QTc: 495 Interpretive Statements Sinus tachycardia with irregular rate Probable left atrial enlargement Nonspecific IVCD with LAD LVH with secondary repolarization abnormality Compared to ECG 06/12/2019 08:50:51 Electronically Signed On 06-14-2019 8:54:31 NASCAR DRIVER by Juancarlos Barajas [email or web address] <ELECTRONICALLY SIGNED> By: Juancarlos Barajas MD 06/14/19 0854 0743 0743 Juancarlos Barajas MD /EPI
== END 2019-07-01 15:54 | DRG 853 ==
LOC: ER 15:53 → EROBS 18:26 → ICU 18:26 → 2N 06-19 19:41 → ENTRNSPT 07-01 15:32 → EDTRNSPTSTS 07-01 15:35 → 2N 07-01 15:54
PROVIDERS: Emergency Medicine Emergency Medical Services; Hospitalist; Internal Medicine; Internal Medicine Cardiovascular Disease; Internal Medicine Gastroenterology; Internal Medicine Pulmonary Disease; Nurse Practitioner; Nurse Practitioner Adult Health; Specialist; ADMIT Hospitalist
PROC: 5A1955Z Respiratory Ventilation, Greater than 96 Consecutive Hours (ICD-10-PCS; principal; 2019-06-11)
PROC: 0BH18EZ Insertion of Endotracheal Airway into Trachea, Via Natural or Artificial Opening Endoscopic (ICD-10-PCS; 2019-06-11)
PROC: 30233N1 Transfusion of Nonautologous Red Blood Cells into Peripheral Vein, Percutaneous Approach (ICD-10-PCS; 2019-06-11)
PROC: 4A023N7 Measurement of Cardiac Sampling and Pressure, Left Heart, Percutaneous Approach (ICD-10-PCS; 2019-06-11)
PROC: 02HV33Z Insertion of Infusion Device into Superior Vena Cava, Percutaneous Approach (ICD-10-PCS; 2019-06-11)
PROC: B2111ZZ Fluoroscopy of Multiple Coronary Arteries using Low Osmolar Contrast (ICD-10-PCS; 2019-06-11)
PROC: 0DB68ZX Excision of Stomach, Via Natural or Artificial Opening Endoscopic, Diagnostic (ICD-10-PCS; 2019-06-15)
PROC: 047Q3DZ Dilation of Left Anterior Tibial Artery with Intraluminal Device, Percutaneous Approach (ICD-10-PCS; 2019-06-22)
PROC: B4181ZZ Fluoroscopy of Bilateral Renal Arteries using Low Osmolar Contrast (ICD-10-PCS; 2019-06-22)
PROC: B41D1ZZ Fluoroscopy of Aorta and Bilateral Lower Extremity Arteries using Low Osmolar Contrast (ICD-10-PCS; 2019-06-22)
PROC: 04CL3ZZ Extirpation of Matter from Left Femoral Artery, Percutaneous Approach (ICD-10-PCS; 2019-06-22)
PROC: 04CN3ZZ Extirpation of Matter from Left Popliteal Artery, Percutaneous Approach (ICD-10-PCS; 2019-06-22)
PROC: 047L3DZ Dilation of Left Femoral Artery with Intraluminal Device, Percutaneous Approach (ICD-10-PCS; 2019-06-22)
PROC: 04CQ3ZZ Extirpation of Matter from Left Anterior Tibial Artery, Percutaneous Approach (ICD-10-PCS; 2019-06-22)
PROC: 047A3DZ Dilation of Left Renal Artery with Intraluminal Device, Percutaneous Approach (ICD-10-PCS; 2019-06-22)
DX: A41.9 Sepsis, unspecified organism (principal); I21.4 Non-ST elevation (NSTEMI) myocardial infarction; K29.71 Gastritis, unspecified, with bleeding; K26.4 Chronic or unspecified duodenal ulcer with hemorrhage; J96.01 Acute respiratory failure with hypoxia; N17.0 Acute kidney failure with tubular necrosis; E43 Unspecified severe protein-calorie malnutrition; I50.33 Acute on chronic diastolic (congestive) heart failure; R65.21 Severe sepsis with septic shock; I42.9 Cardiomyopathy, unspecified; E87.1 Hypo-osmolality and hyponatremia; D62 Acute posthemorrhagic anemia; E87.2 Acidosis; G72.81 Critical illness myopathy; L97.529 Non-pressure chronic ulcer of other part of left foot with unspecified severity; E11.51 Type 2 diabetes mellitus with diabetic peripheral angiopathy without gangrene; I11.0 Hypertensive heart disease with heart failure; E78.5 Hyperlipidemia, unspecified; E87.8 Other disorders of electrolyte and fluid balance, not elsewhere classified; E86.0 Dehydration; E87.6 Hypokalemia; E11.65 Type 2 diabetes mellitus with hyperglycemia; K74.60 Unspecified cirrhosis of liver; E83.42 Hypomagnesemia; I25.10 Atherosclerotic heart disease of native coronary artery without angina pectoris; Z82.49 Family history of ischemic heart disease and other diseases of the circulatory system; Z68.23 Body mass index [BMI] 23.0-23.9, adult; Z79.82 Long term (current) use of aspirin; I25.2 Old myocardial infarction; Z79.899 Other long term (current) drug therapy
CPT/HCPCS: 10078; 10081; 10203

== ENCOUNTER 2019-06-30 11:20 | Inpatient (IN) | payer OTHER ==
[~2019-06-30] VITALS: Ht 152.4 cm; Wt 63.5 kg
--- NOTE | ~2019-06-30 | H ---
[facility] [place] [address] HISTORY AND PHYSICAL Name: ROSAS WALDEN Room #: 503-P ADM IN M.R.#: [id number] Admission: 07/01/19 Attend Phys: Atilio Garcia MD Discharge: Date of : 31 Report #: [id number] THIS REPORT FOR: cc: NESSA - Skylar family physician/PCP NESSA - Skylar family physician/PCP Atilio Garcia MD ~ CC: Atilio SZYMANSKI physician/PCP DATE OF SERVICE: 07/03/2019 POST-ADMISSION PHYSICIAN EVALUATION HISTORY OF PRESENT ILLNESS: The patient has been admitted for acute in-hospital inpatient rehabilitation. She has a complex history of hospital admission with nausea, vomiting, weakness, bloody stools, was quickly intubated, was in the ICU on 06/11/2019, diagnosed with acute respiratory failure, CHF, acute exacerbation, non-ST elevation KS, shock, GI bleed. She was extubated on 06/17/2019. She has peripheral arterial disease with left fifth digit wound. Wound care is following. She underwent cardiac catheterization on 06/22/2019 and ended up having a left main stent on 06/30/2019. She has considerable generalized weakness with critical illness myopathy and has been admitted for acute in-hospital inpatient rehabilitation. The patient does not have any specific complaints today. PHYSICAL EXAMINATION: GENERAL: She is pleasant. VITAL SIGNS: Temperature 97.7, pulse 85, respirations 18, blood pressure 162/82. Follows basic commands without difficulty. HEAD, EYES, EARS, NOSE, AND THROAT: Appeared to be benign. CHEST: Sounded clear to auscultation. CARDIOVASCULAR: Regular rate and rhythm. ABDOMEN: Bowel sounds positive, nontender. GENITOURINARY AND RECTAL: Deferred. EXTREMITIES: Upper extremity strength is probably a grade 3 to 3+/5. Lower extremity is 3+. Negative Homans. She does have 2+ lower extremity distal edema. NEUROLOGIC: She is pleasant. She follows basic commands. Transfers have been mod assist. MEDICATIONS: Please see the current medication listing. REVIEW OF SYSTEMS: No current complaints of chest pain, shortness of breath or abdominal discomfort. [facility] [address] [place] [address] HISTORY AND PHYSICAL Name: ROSAS WALDEN Room #: 503-P [facility] IN ..#: [id number] Admission: 07/01/19 Attend Phys: Atilio Garcia MD Discharge: Date of : 33 Report #: [id number] ASSESSMENT: 1. Critical illness myopathy. 2. Acute respiratory failure, status post extubation . 3. Peripheral vascular disease, status post left main stent. 4. Acute exacerbation of congestive heart failure. 5. Non-ST elevation myocardial infarction. 6. Left fifth toe ulcer. 7. Acute gastrointestinal bleed with anemia. 8. Electrolyte abnormalities, resolved. PLAN: The patient has been admitted for acute in-hospital inpatient rehabilitation. Please see my prior dictation from 07/01/2019. The post-admission physician evaluation is actually included in that dictation. By: 0838 1 Atilio Garcia MD /GIGI
--- NOTE | ~2019-06-30 | PLAN ---
[facility] [place] [address] REHAB UNIT PLAN OF CARE Name: ROSAS WALDEN Room #: 503-P ADM IN M.R.#: [id number] Admission: 07/01/19 Attend Phys: Atilio Garcia MD Discharge: Date of : 33 Report #: [id number] THIS REPORT FOR: //name// CC: Atilio Garcia [facility] physician/PCP DATE OF SERVICE: 07/04/2019 PROGRESS NOTE AND OVERALL PLAN OF CARE SUBJECTIVE: She was seen yesterday a.m. in followup. She was in no distress. Temperature 97.2, pulse 92, respirations 20, blood pressure 177/85. The patient was sleepy, but easily aroused. She has been working in therapies with transfers at a mod assist level. She has ambulated 14 feet min assist with a front-wheeled walker. In occupational therapy, lower body dressing has been max assist with upper body max assist. Speech therapy worked with her and she has been demonstrating a severe memory deficit. She has hyajemof-su-qgounj cognitive deficits. She is on mechanical soft diet with thin liquids. ASSESSMENT: An 84-year-old white female with the following problem list: 1. Critical illness myopathy. 2. Acute respiratory failure, status post extubation. 3. Peripheral vascular disease with left fifth toe ulcer. 4. Acute exacerbation of congestive heart failure. 5. Non-ST elevation myocardial infarction. 6. Acute gastrointestinal bleed with anemia. PLAN: The overall plan of care is based on the preadmission screen, post-admission physician evaluation and information garnered from therapy assessments. 1. Estimated length of stay is probably at least 10 days to 2 weeks and likely longer. 2. Medical prognosis is reasonably good. 3. Anticipated interventions includes the interdisciplinary acute inpatient rehabilitation program. 4. Anticipated functional outcomes would be for the patient to improve as far as transfers, mobility, gait, ADLs and cognition. Hopefully, should be able to be ambulatory with the walker. 5. Discharge destination would be back home with family. She does live with her . 6. Expected therapy by discipline includes PT, OT and speech 1 hour per day [address] [address] REHAB UNIT PLAN OF CARE Name: ROSAS WALDEN Room #: 503-P [facility] IN .R.#: [id number] Admission: 07/01/19 Attend Phys: Atilio Garcia MD Discharge: Date of : 33 Report #: [id number] each five days a week throughout the duration of the acute inpatient rehabilitation stay. By: 1029 1525 Atilio Garcia MD /[facility]
[~2019-06-30 11:20] MED LIST: ACCUPRIL40 MG PO; ACTOS 30 MG TAB30 M1 PO; ACTOS15 MG PO; ADALAT CC60 MG PO; FISH OIL 1,0001 EAC9 PO; GLIPIZIDE 10 MG10 MG PO; HYDROCHLOROTHIA25 M2 PO; MELOXICAM15 MG PO; METFORMIN HCL500 M3 PO; NAPROSYN500 MG PO; SIMVASTATIN80 MG PO; SLOW FE142 MG PO
[2019-07-01] MEDS ORDERED: CLOPIDOGREL75 MG PO (12:16)
[2019-07-01] MEDS ORDERED: LOPRESSOR25 PER TUBE (12:17)
[2019-07-01] MEDS ORDERED: PROTONIX40 M1 PO (12:29)
[2019-07-01] MEDS ORDERED: TORSEMIDE20 MG PO (12:29)
[2019-07-01] MEDS ORDERED: ASA81BEC PO (12:30)
[2019-07-01] MEDS ORDERED: LIPITOR40 MG PO (12:31)
[2019-07-01 16:20] VITALS: BP 101/42
--- NOTE | 2019-07-01 16:24 | NUR ---
1600 ADMITTED TO ROOM 503. PATIENT IS ALERT AND ORIENTED X4. PATIENT EDUARDO'S, LUNCH WAGON OPERATOR ARE EQUAL. LUNGS ARE CLEAR AND DEMINISHED. ABD IS SOFT WITH BSX4. PATIENT HAD BM TODAY. PATIENT HAS MELGOZA TO DD, DRAINING HORACIO COLORED URINE. PATIENT WEARS PRAFO BOOTS . PATIENT HAS WOUND TO FIFTY LITTLE TOE. BETADINE TO BE APPLIED DAILY. NO IV ACCESS. ENCOURAGE PO FLUIDS. FALL AND SAFETY PROTOCOLS IN PLACE. DENIES PAIN AT THIS TIME. PLAN PT, OT, ST EMMANUEL IN AM. AT BEDSIDE. WILL CONTINUE TO MONITER.
[2019-07-01 19:35] VITALS: BP 121/49
--- NOTE | 2019-07-02 00:25 | NUR ---
PT ALERT AND ORIENTED X 4. MELGOZA PATENT DRAINING ADEQUATE AMTS CLEAR YELLOW URINE. BLOOD SUGAR 226 AT HS. INSULIN GIVEN ORDERED. PT C/O PAIN IN LEFT TOE. TYLENOL GIVEN AND PT SLEEPING UPON REASSESSMENT. PT TAKES MEDS IN APPLESAUCE WITHOUT DIFFICULTY. BED ALARM ON FOR SAFETY. PT APPEARS TO BE SLEEPING ON HOURLY ROUNDS.
[2019-07-02 04:52] LABS: CREATININE 0.8 mg/dL (0.6-1.0); POTASSIUM 3.7 mmol/L (3.5-5.1)
[2019-07-02 05:14] LABS: HEMATOCRIT 26.4 % (37.0-47.0); HEMOGLOBIN 8.5 gm/dL (12.0-15.0); MCH 27.2 pg (26.0-34.0); MCHC 32.1 g/dL (28.0-37.0); MCV 84.5 fL (80.0-100.0); RBC 3.12 mil/uL (4.20-5.00); RDW 21.2 % (10.5-14.5)
[2019-07-02 08:00] VITALS: BP 162/61
--- NOTE | 2019-07-02 10:18 | NUR ---
chart review, pt up in wheel chair. pt is a & o x 3 with some forgetfulness, pleasant and able to make her needs know. pt lives in house with spouse milton who is [place]. spoke with son marshall who stated need to know how many days she will have because mom and pops have to make stairs at home so they going to be moving into [facility] right down the road." never driven vehicle. has cane. no hh or past rehab. 5 step into home the 5 steps to 2nd floor and 4 steps to basement. manage own medication."/chart, pt and son marshall. education on team meeting, and transition of care. will cont following as needed for dc needs.
--- NOTE | 2019-07-02 19:53 | NUR ---
ASSUMED CARE AT 0700, PT A&O X 4, NO ACUTE DISTRESS DURING SHIFT. VSS O2 ON RA. PT DENIED ANY PAIN OR DISCOMFORT. MAX ASSIST X 1, WHEELCHAIR BOUND. NO IV ACCESS, BG ACHS SS NEEDED. PT HAS MELGOZA CLEAR YELLOW URINE, CONTINENT OF BM, LAST 0N 07/01/19. PRAFO BOOTS TO BL FEET. RESTING IN BED, CALL LIGHT WITHIN REACH, WILL CONTINUE TO MONITOR PER POC.
[2019-07-02 21:18] VITALS: BP 162/82
--- NOTE | 2019-07-03 00:37 | NUR ---
PT ALERT AND ORIENTED X 4. MAX ASSIST X 2 TO BED AT HS. MELGOZA PATENT DRAINING ADEQUATE AMTS CLEAR YELLOW URINE. PT TAKES MEDS IN APPLESAUCE WITHOUT DIFFICULTY. PT HAS RASH OVER CHEST, BACK, ARMS AND MATT-AREA. PT STATES I'VE BEEN ITCHING FOR DAYS. CHINO RIBERA NOTIFIED WITH ORDERS RECEIVED. BED ALARM ON FOR SAFETY. PT APPEARS TO BE SLEEPING ON HOURLY ROUNDS.
[2019-07-03 06:10] LABS: HEMATOCRIT 30.2 % (37.0-47.0); HEMOGLOBIN 9.5 gm/dL (12.0-15.0); MCH 26.9 pg (26.0-34.0); MCHC 31.5 g/dL (28.0-37.0); MCV 85.3 fL (80.0-100.0); RBC 3.53 mil/uL (4.20-5.00); RDW 21.9 % (10.5-14.5); WBC 8.2 thou/uL (4.0-11.0)
[2019-07-03 06:15] LABS: CALCIUM 8.6 mg/dL (8.5-10.1); CREATININE 0.8 mg/dL (0.6-1.0); MAGNESIUM 1.3 mg/dL (1.8-2.4); POTASSIUM 3.4 mmol/L (3.5-5.1)
--- NOTE | 2019-07-03 16:39 | NUR ---
ASSUMED CARE OF PT AT 0700. PT ALERT AND ORIENTED, IN NO ACUTE DISTRESS. VOICING NO CONCERNS OR COMPLAINTS. IV ACCESS STARTED FOR IV MAGNESIUM. TWO LARGE BM's TODAY. HYDROCORTISONE APPLIED TO RASH SITES. MEDS TAKEN WITH APPLESAUCE. VITALS UNREMARKABLE. NO OTHER CHANGES TO REPORT AT THIS TIME.
[2019-07-03 19:18] VITALS: BP 136/49
[2019-07-04 01:07] LABS: GLYCOHEMOGLOBIN (HGB A1C) 6.4 % (4.8-5.6)
--- NOTE | 2019-07-04 02:24 | NUR ---
pt care assumed with pt in bed .pt son visited .pt is alert and oriented.pt in no distress,pt takes medication whole with apple sauce.pt is accucheck achs with low dose sliding scale insulin.will continue to monitor per poc
[2019-07-04 07:20] VITALS: BP 141/55
--- NOTE | 2019-07-04 17:24 | NUR ---
PT ALERT AND ORIENTED TIMES FOUR, BUT SOMEWHAT SLOW TO RESPOND TO QUESTIONS. VSS, MELGOZA TO DD. PT DENIES PAIN/SOA. PT TOLERATES MEDS AND MEALS. PT WORKED WELL WITH PT/OT. PT AT BEDSIDE TODAY. PT SLOWLY PROGRESSING TOWARDS POC GOALS.
[2019-07-04 19:34] VITALS: BP 177/85
--- NOTE | 2019-07-05 03:59 | NUR ---
SHANE HOSE REMOVED FROM LEFT LEG TO EASE PRESSURE ON LEFT TOE V AND LEFT HEEL. GIVEN TYLENOL WELL AND HAS BEEN SLEEPING, TURNED TO SIDE, FEET ELEVATED WITH SMALL PILLOW AND PRAFO BOOTS, LOW AIR LOSS THERAPY. ABAD MARQUEZ DD
[2019-07-05 08:00] VITALS: BP 135/53
[2019-07-05 09:37] LABS: HEMATOCRIT 27.6 % (37.0-47.0); MCH 27.3 pg (26.0-34.0); MCHC 32.6 g/dL (28.0-37.0); MCV 83.8 fL (80.0-100.0); RBC 3.3 mil/uL (4.20-5.00); RDW 21.4 % (10.5-14.5); WBC 5.7 thou/uL (4.0-11.0)
[2019-07-05 09:46] LABS: CALCIUM 8.9 mg/dL (8.5-10.1); CREATININE 0.8 mg/dL (0.6-1.0); MAGNESIUM 1.1 mg/dL (1.8-2.4); POTASSIUM 3.2 mmol/L (3.5-5.1)
--- NOTE | 2019-07-05 16:43 | NUR ---
ASSUMED CARE AT 0700, PT A&0 X 4, NO ACUTE DISTRESS DURING SHIFT. VSS O2 ON RA. PT DENIED ANY PAIN OR DISCOMFORT. BG ACHS SS NEEDED. IV STARTED TO LH. PT HAS MELGOZA WITH CLEAR YELLOW URINE NOTED. BM TODAY LARGE AND FORMED. SPOUSE VISITED, PT RESTING IN BED CALL LIGHT WITHIN REACH, WILL CONTINUE TO MONITOR PER POC.
[2019-07-05 20:20] VITALS: BP 143/62
--- NOTE | 2019-07-06 04:49 | NUR ---
PAIN IN LEFT HEEL CONTINUES, SHANE HOSE REMOVED AND HEEL LEFT OPEN TO AIR, WOUND CARE TEAM CONSULTED, PICTURE TAKEN, HEELS ELEVATED ON PILLOWS, PATIENT STATES THIS FEELS BETTER THAN PUTTING ON PRAFO BOOTS. TURNED TO SIDE, MELGOZA TO DD PATENT WITH CLEAR URINE
[2019-07-06 05:10] LABS: HEMATOCRIT 27.1 % (37.0-47.0); HEMOGLOBIN 8.7 gm/dL (12.0-15.0); MCH 27.1 pg (26.0-34.0); MCV 84.8 fL (80.0-100.0); RBC 3.2 mil/uL (4.20-5.00); RDW 21.8 % (10.5-14.5); WBC 5.9 thou/uL (4.0-11.0)
[2019-07-06 05:14] LABS: CALCIUM 8.3 mg/dL (8.5-10.1); CREATININE 0.8 mg/dL (0.6-1.0); MAGNESIUM 1.3 mg/dL (1.8-2.4)
[2019-07-06 07:52] VITALS: BP 151/64
--- NOTE | 2019-07-06 14:48 | NUR ---
PATIENT'S DAUGHTER IN LAW, MARK WALDEN, REQUESTED TO BE THE "PERSON TO NOTIFY" SHE IS A NURSE, AND THE PATIENT'S OTHER FAMILY REQUESTS HER INVOLVEMENT. PATIENT HAS GIVEN PERMISSION TO DISCUSS HER MEDICAL CARE AND PROGRESS WITH MARK WALDEN. A MESSAGE HAS BEEN SENT TO THE REGISTRATION OFFICE REGARDING THIS CHANGE, INCLUDING A REQUEST FOR THIS TO BE ON THE FACE SHEET. CASE MANAGEMENT WILL BE NOTIFIED.
--- NOTE | 2019-07-06 14:54 | NUR ---
ASSUMED CARE AT 0700, PT A&O X 4, NO ACUTE DISTRESS DURING SHIFT. VSS 02 ON RA. PT DENIES PAIN OR DISCOMFORT. TOLERATES MEDS WITH APPLESAUCE. BG ACHS. SHANE COLEMAN TO ADAM FRANCIS FROM ASSESSED PT WOUND ON L HEEL, IT WAS DRESSED WITH XEROFORN AND COVERED WITH BORDERFOAM, CONTINUE DRESSING CHANGE UNTIL DR. ANJELICA LAWRENCE. PT HAS MELGOZA IN PLACE, CLEAR YELLOW URINE NOTED, INCONTINENT OF BM, LAST BM 07/05/19. PT SITTING IN CHAIR, CALL LIGHT WITHIN REACH, WILL CONTINUE TO MONITOR PER POC.
--- NOTE | 2019-07-06 14:57 | NUR ---
WOUND CONSULT; I WAS ASKED TO F/U WITH THIS PATIENT TODAY RE; THE LEFT HEEL WOUND. THE HEEL HAS A PRESSURE INJURY. BRUISING AND BOGGY. SKIN INTACT. RECOMMENDATION; WEAR PRAFO BOOTS AT ALL TIMES. PAINT WITH BETADINE, COVER WITH XEROFORM AND A BORDER FOAM. DISCUSSED WITH KAMINI
[2019-07-06 19:38] VITALS: BP 174/97
--- NOTE | 2019-07-07 02:37 | NUR ---
PT ALERT AND ORIENTED X 4. MELGOZA PATENT DRAINING ADEQUATE AMTS CLEAR YELLOW URINE. BLISTER NOTED ON LEFT HEEL. PRAFO BOOTS ON. PT TURNED Q2H. PT TAKES MEDS IN APPLESAUCE WITHOUT DIFFICULTY. PT DENIES PAIN OR DISCOMFORT. BED ALARM ON FOR SAFETY. PT APPEARS TO BE SLEEPING ON HOURLY ROUNDS.
[2019-07-07 06:23] LABS: CALCIUM 8.7 mg/dL (8.5-10.1); CREATININE 0.8 mg/dL (0.6-1.0); MAGNESIUM 1.4 mg/dL (1.8-2.4); POTASSIUM 3.8 mmol/L (3.5-5.1)
[2019-07-07 07:30] VITALS: BP 137/56
--- NOTE | 2019-07-07 12:34 | NUR ---
team meeting, recommendation:; left heel blister. on q turns, wound care consulted, heel boots and air mattress. no co of pain. bladder training to start today. still has mullins. diet mech soft with thin liquid. dc , need referral to be sent to [facility], new facility for pt so need to come out and eval. will need [facility]ww for life time use. hh (pt, ot, st and nursing). will cont following as needed for dc needs.
--- NOTE | 2019-07-07 14:48 | NUR ---
ASSUMED CARE AT 0700, PT A&O X 4, PLEASANT WITH MILD CONFUSION AT TIMES, FAMILY AT BEDSIDE. VSS O2 ON RA, PT DENIES PAIN OR DISCOMFORT, PRAFO BOOTS IN PLACE, HEELS OFFLOADED. IV TO LH, STATLOCK AND FLUSHES WELL. BG ACHS, SS NEEDED. DRESSING CHANGED TO L HEEL, NO DRAINAGE, ODOR NOTED. PT HAS MELGOZA, CLEAR YELLOW URINE DRAINING, BLADDER TRAINING STARTED TODAY. CONTINENT OF BM, BM X 2 TODAY, FORMED. PT IN CHAIR, CALL LIGHT WITHIN REACH, WILL CONTINUE TO MONITOR PER POC.
[2019-07-07 19:09] VITALS: BP 152/72
--- NOTE | 2019-07-08 00:30 | NUR ---
PT ASSESSMENT DONE AND VSS. MEDS GIVEN AND WELL TOLERATED. FALL PRECAUTIONS IN PLACE. HOURLY ROUNDING. CALL LIGHT IN REACH. WILL CONTINUE TO MONITOR.
[2019-07-08 06:43] LABS: CREATININE 0.8 mg/dL (0.6-1.0); MAGNESIUM 1.3 mg/dL (1.8-2.4)
[2019-07-08 07:30] VITALS: BP 138/62
[2019-07-08 08:00] VITALS: BP 138/62
[2019-07-08 08:55] LABS: HEMATOCRIT 28.7 % (37.0-47.0); MCH 26.8 pg (26.0-34.0); MCHC 31.4 g/dL (28.0-37.0); MCV 85.3 fL (80.0-100.0); RBC 3.36 mil/uL (4.20-5.00); RDW 22.4 % (10.5-14.5); WBC 4.8 thou/uL (4.0-11.0)
--- NOTE | 2019-07-08 09:15 | NUR ---
cm left hh list choice and senior blue book for resources outside the hospital. per son marshall "ok to use hh that [facility]"/son. referral to be sent.
--- NOTE | 2019-07-08 19:00 | NUR ---
ASSUMED CARE AT 0700, REPORTS SLEPT FAIR. PT A&O X 4,ABLE TO VOICE HER NEEDS. VSS 02 ON RA. LABS REVIEWED. NOTIFIED BACILIO MAG 1.3, MAG IV SUPPLEMENT GIVEN ON LEFT HAND IV. REASSESSMENT PER CHART. PT REPORTS HAD BM TODAY. C/O LEFT HEEL PAIN EARLIER, GAVE PRN TYLENOL. PT DENIES PAIN OR DISCOMFORT NOW. TOLERATES MEDS WITH APPLESAUCE. CONTINUE TO BE ON ASPIRATION PRECAUTION. UP TO DINNING ROOM FOR BREAKFAST. BS MONITOR AND INSULIN GIVEN ORDERED. EDEMA TO BILATERAL FEET. SHANE HOSE TO RLE. WOUND CARE DONE ON L HEEL, IT WAS DRESSED WITH XEROFORN AND COVERED WITH BORDERFOAM, CONTINUE DRESSING CHANGE DAILY. PT HAS MELGOZA IN PLACE, CLEAR YELLOW URINE NOTED. HAD 2300CC OUT PUT. PT SAID SHE HAD GOOD DAY TODAY, HAS BRIGHT AFFECT AND SMILING. PT HAS BEEN UP AND PARTICIPATED WELL WITH THERAPY TODAY. WAS AT BEDSIDE. RESTING IN BED AT THIS MOMENT. CALL LIGHT WITHIN REACH, GAVE REPORT TO NIGHT NURSE TO CONTINUE TO MONITOR.
[2019-07-08 19:25] VITALS: BP 154/71
--- NOTE | 2019-07-09 01:12 | NUR ---
PT ALERT AND ORIENTED X 4. MELGOZA PATENT DRAINING CLEAR YELLOW URINE. LEFT HEEL DRESSING C/D/I. PRAFO BOOTS ON. OPEN AREAS ON BUTTOCKS. Z-GUARD APPLIED. PT TURNED Q2H. PT TAKES MEDS IN APPLESAUCE WITHOUT DIFFICULTY. PT DENIES PAIN OR DISCOMFORT. BED ALARM ON FOR SAFETY. PT APPEARS TO BE SLEEPING ON HOURLY ROUNDS.
[2019-07-09 07:23] LABS: CALCIUM 9.2 mg/dL (8.5-10.1); CREATININE 0.8 mg/dL (0.6-1.0); MAGNESIUM 1.2 mg/dL (1.8-2.4); POTASSIUM 3.5 mmol/L (3.5-5.1)
[2019-07-09 08:45] VITALS: BP 141/60
--- NOTE | 2019-07-09 11:44 | NUR ---
Nutrition: Assessed due to documentation of 'yes' to pressure wound. Per EMR review, no new wounds, but pt documented with the following skin issues: L heel blister, L 5th toe sore, bottom excoriation. On an 1800 kcal carb controlled heart healthy diet w/chopped meat. Receives Glucerna oral nutrition supplement daily at breakfast. Visited w/ pt to review nutrition intake and make protein recommendations. Pt averaging ~2/3 of meals. 63% meal average the last 5 days; 72% average the last 2 days alone. Wt is stable, within 1.5# from a week ago (141# per 07/03 to 139.5# per 07/08). Encouraged ongoing work on her protein foods, identifying ways to include each meal. Pt had eggs, milk, and turkey sausage this a.m. Desires to continue Glucerna daily for extra source of kcals/protein if needed. A1c controlled at 6.4% and vitamin D levels WNL at 44.4 ng/ml this admit. Do note low Mag today, recommend replacing. Otherwise pt declines further nutrition needs. Low nutrition risk.
--- NOTE | 2019-07-09 13:50 | NUR ---
ASSUMED CARE AT 0700, REPORTS SLEPT FAIR. PT A&O X 4,ABLE TO VOICE HER NEEDS. VSS 02 ON RA. LABS REVIEWED. NOTICED NEW ORDER FOR MAG IV SUPPLEMENT PT HAS NO IV ACCESS AT THIS MOMENT. BACILIO SAID SHE CHANGE IV TO PO AND DISCONTINUE ORDER FOR MELGOZA. PT HAD 200CC IN MELGOZA CATH. REMOVED MELGOZA AT 1000 WITHOUT DIFFICULTY. PT URINATED ONE TIME WITH PHYSICAL THERAPIST AND HAD BM TODAY. WILL BLADDER SCAN LATER. REASSESSMENT PER CHART. PT C/O LEFT HEEL PAIN EARLIER, GAVE PRN TYLENOL. PT DENIES PAIN OR DISCOMFORT NOW. TOLERATES MEDS WITH APPLESAUCE. CONTINUE TO BE ON ASPIRATION PRECAUTION. UP TO DINNING ROOM FOR MEALS. BS MONITOR AND INSULIN GIVEN ORDERED. EDEMA TO BILATERAL FEET. SHANE HOSE TO RLE. WOUND CARE DONE ON L HEEL, IT WAS DRESSED WITH XEROFORN AND COVERED WITH BORDERFOAM, CONTINUE DRESSING CHANGE DAILY. PT HAS BEEN UP AND PARTICIPATED WELL WITH THERAPY TODAY. WAS AT BEDSIDE. CALL LIGHT WITHIN REACH. CONTINUE TO MONITOR URINATION AND CHECK FREQUENTLY FOR NEEDS AND SAFETY.
--- NOTE | 2019-07-09 14:24 | NUR ---
referral to be sent to [facility] that is with in the [facility]. liaison from [place] came and visited pt and spouse milton at bedside this after noon.
--- NOTE | 2019-07-09 15:24 | NUR ---
WOUND CARE F/U; THE RIGHT HEEL DTI WAS ASSESSED TODAY AND IS STABLE AT THIS TIME. NO S/S OF INFECTION. NO CHANGES TO POC
--- NOTE | 2019-07-09 16:15 | NUR ---
MELGOZA CATH REMOVED AT 1000 TODAY. URINATED 2X WITH ADEQUATE AMOUNT. BS HAS 10CC RESIDUAL. PT DENIES PROBLEM OR DIFFICULTY OF URINATION. WILL GIVE REPORT TO NIGHT NURSE TO CONTINUE TO MONITOR. WOUND CARE ON LEFT HEEL AND 5TH TOE CHANGED. STILL HAS REDNESS ON BUTTOCKS, LOOKS BETTER. PT HAS BEEN LAYING ON SIDE, PT HAS BEEN WALKING TO DINNING ROOM FOR MEALS. WOUND DOCTOR WANTS PT TO USE TUBIGRIPS INSTEAD OF TEDHOSE. PT HAS BEEN UP AND PARTICIPATED WELL WITH THERAPY TODAY. RESTING IN BED. AT BEDSIDE. HAD BM TODAY. WILL CONTINUE TO MONITOR.
[2019-07-09 19:20] VITALS: BP 144/63
--- NOTE | 2019-07-10 03:28 | NUR ---
CARE ASSSUMED AT 2200 PATIENT WAS IN BED ASLEEP. PROFOL BOOT ON. PATIENT DENIED PAIN OR DISCOMFORT. LEFT BLISTER DRESSING IS C/D/I. PATIENT DENIED PAIN OR DISCOMFORT. PATIENT HAS +2 EDEMA ON BLE REMOVED TUBIGRIPS THIS SHIFT. PATIENT IN BED ASLEEP AT THIS TIME BREATHING REGULAR AND UNLABOURED.
[2019-07-10 08:35] VITALS: BP 145/69
--- NOTE | 2019-07-10 13:35 | H ---
[facility] [place] [address] HISTORY AND PHYSICAL Name: ROSAS WALDEN Room #: 503-P ADM IN M.R.#: [id number] Admission: 07/01/19 Attend Phys: Atilio Garcia MD Discharge: Date of : 31 Report #: [id number] THIS REPORT FOR: cc: NESSA - Skylar family physician/PCP NESSA - No family physician/PCP Atilio Garcia MD ~ CC: Atilio SZYMANSKI physician/PCP DATE OF SERVICE: 07/01/2019 HISTORY AND PHYSICAL/POSTADMISSION PHYSICIAN EVALUATION HISTORY OF PRESENT ILLNESS: The patient has been admitted for acute in-hospital inpatient rehabilitation. She has critical illness myopathy after being admitted to the ICU on 06/11/2019, diagnosed with acute respiratory failure, CHF, acute exacerbation, non-ST elevation MT, shock and GI bleed. She was seen by multiple consultants. She was extubated on 06/17/2019. She had a wound to the left fifth digit with peripheral arterial disease with wound care team following. She underwent cardiac catheterization showing greater than 75% proximal left main and moderate diffuse disease of the LAD. She underwent a left main stent on 06/30/2019 without complications. The patient was noted to have a significant functional decline and has significant weakness with her critical illness myopathy and prolonged ICU hospitalization. She has now been admitted for acute in-hospital inpatient rehabilitation. Please see the full history and physical. See the noted past medical history, family history, habits, social history. MEDICATIONS: See the MAR. ALLERGIES: No known drug allergies. REVIEW OF SYSTEMS: See the 14-point system review as noted. No chest pain, shortness of breath, or abdominal discomfort. PHYSICAL EXAMINATION: GENERAL: An 84-year-old -[place] female in no obvious distress. VITAL SIGNS: Temperature 36.2, pulse 79, respirations 16, blood pressure 162/61. She was alert. HEENT: Appeared to be benign. CHEST: Sounded clear to auscultation. CARDIOVASCULAR: Regular rate and rhythm. ABDOMEN: Bowel sounds positive, nontender. GENITOURINARY AND RECTAL: Deferred. EXTREMITIES: She has functional range of motion of the upper extremities with strength probably a grade 3- to 3/5. Lower extremities functional range of [facility] [address] [place] [address] HISTORY AND PHYSICAL Name: ROSAS WALDEN Room #: [facility].#: [id number] Admission: 07/01/19 Attend Phys: Atilio Garcia MD Discharge: Date of : 33 Report #: [id number] motion with strength grade 3/5. She is max assist for bed mobility. She has 1+ distal lower extremity edema. Functionally, she has been needing max assist with sit to stand. At times, she is closer to a min assist. ASSESSMENT: An 84-year-old -[place] female with the following problem list: 1. Critical illness myopathy. 2. Acute respiratory failure, status post extubation on 06/17/2019. 3. Coronary artery disease with left main stents, 06/30/2019. 4. Acute exacerbation of congestive heart failure. 5. Non-ST elevation myocardial infarction. 6. Peripheral vascular disease with left fifth toe ulcer. 7. Recent acute GI bleed/anemia. PLAN: The patient has been admitted for acute in-hospital inpatient rehabilitation. From a postadmission physician evaluation perspective, there are no relevant changes since the preadmission screening. Please see the above review of prior and current medical and functional conditions and comorbidities. Please see the patient's previous and current functional status. As far as risk of complications, the patient has multiple medical comorbidities as noted above. Initial plan of care involves the interdisciplinary acute inpatient rehabilitation program. Measurable functional goals would be for the patient to become modified independent with transfers, mobility, ADLs, so she can hopefully return back to her prior living situation. I have also asked Speech Therapy to assist regarding cognition, communication. Prognosis is reasonably good with estimated length of stay probably at least 10 days to 2 weeks. Potential barriers would include the multiple medical comorbidities and decreased functional status. The patient meets diagnostic criteria for an acute in-hospital inpatient rehabilitation stay. She meets medical necessity criteria. We will have the commercial sales consultant physicians continue to follow. She does have the tolerance for therapies and has appropriate discharge goals back to the home setting. <ELECTRONICALLY SIGNED> By: Atilio Garcia MD 07/10/19 [id number] Atilio Garcia MD /[facility]
--- NOTE | 2019-07-10 15:01 | NUR ---
FA[facility]ED REFERRAL TO [facility] SPOKE WITH DIANN IN INTAKE SHE RECEIVED REFERRAL AND CAN ACCEPT AT DC ANTICIPATE DC 07/15. DP TO FOLLOW.
[2019-07-10 15:03] VITALS: BP 145/69
[2019-07-10 19:35] VITALS: BP 151/54
--- NOTE | 2019-07-10 21:31 | NUR ---
ASSUMED CARE OF PT AT 0700. PT IS A&OX4 AND VITAL SIGNS ARE STABLE. PT DENIES PAIN AND PARTICIPATED IN SCHEDULED THERAPIES. ACCU CHECKS ACHS AND MANAGED WITH PO MEDICIATONS AND INUSLIN PER ORDERS. PRAFO BOOTS IN PLACE. WOUNDS TO LEFT HEEL AND 5TH TOE CLEANED AND DRESSED PER ORDERS. FALL PRECAUTIONS IN PLACE AND NURSING WILL CONTINUE TO MONITOR.
--- NOTE | 2019-07-11 03:17 | NUR ---
PT ASSESSMENT COMPLETED AND VSS. MEDS GIVEN ORDERED AND WELL TOLERATED. FALL PRECAUTIONS IN PLACE. ASST WITH REPOSITION FOR COMFORT USING PILLOWS. ALDA BOOTS ON. BARRIER CREAM APPLIED TO R INNER BUTTOCK WOUND. PT UP TO THE BATHROOM WITH ASST/WHEELCHAIR/GAIT. VOIDED LARGE AMOUNT OF URINE. SLEEPING WELL. DENIES NEEDS. WILL CONTINUE TO MONITOR FREQUENTLY.
[2019-07-11 05:57] LABS: ABSOLUTE NEUTROPHILS 3.3 thou/uL (1.4-8.2); BASOPHILS 0.8 % (0.0-2.0); EOSINOPHILS 2.3 % (0.0-3.0); HEMATOCRIT 30.6 % (37.0-47.0); HEMOGLOBIN 9.8 gm/dL (12.0-15.0); LYMPHOCYTES 24.1 % (24.0-44.0); MCH 27.2 pg (26.0-34.0); MCHC 31.9 g/dL (28.0-37.0); MCV 85.3 fL (80.0-100.0); PLATELET COUNT 281 thou/uL (150-400); POLYS 62.8 % (36.0-66.0); RBC 3.59 mil/uL (4.20-5.00); RDW 22.1 % (10.5-14.5); WBC 5.3 thou/uL (4.0-11.0)
[2019-07-11 05:58] LABS: CALCIUM 9.4 mg/dL (8.5-10.1); CREATININE 0.9 mg/dL (0.6-1.0); POTASSIUM 3.3 mmol/L (3.5-5.1)
[2019-07-11 08:00] VITALS: BP 136/47
--- NOTE | 2019-07-11 19:31 | NUR ---
ASSUMED CARE OF PT AT 0700. PT IS A&OX4 AND VITAL SIGNS ARE STABLE. PT DENIES PAIN AND PARTICIPATED IN SCHEDULED THERAPIES. ACCU CHECKS ACHS AND MANAGED WITH PO MEDICAITONS. FALL PRECAUTIONS IN PLACE AND NURSING WILL CONTINUE TO MONITOR.
[2019-07-11 19:52] VITALS: BP 137/51
--- NOTE | 2019-07-12 00:34 | NUR ---
PT ASSESSMENT COMPLETED AND VSS. MEDS GIVEN ORDERED AND WELL TOLERATED. FALL PRECAUTIONS IN PLACE. ALDA BOOTS ON. ASST WITH REPOSITION FOR COMFORT. BARRIER CREAM APPLIED TO ALDA BUTTOCK WOUNDS. ORDERED CREAM FOR PEELING SKIN APPLIED. FOLLOWING ELECTROLYTE PROTOCOL. SLEEPING WELL AT THIS TIME. WILL CONTINUE TO MONITOR FREQUENTLY. PRN TYLENOL HELPFUL FOR PAIN.
[2019-07-12 04:19] LABS: POTASSIUM 3.9 mmol/L (3.5-5.1)
[2019-07-12 07:30] VITALS: BP 139/52
--- NOTE | 2019-07-12 14:52 | HC ---
[facility] [place] [address] CONSULTATION Name: ROSAS WALDEN Room #: 503-P [facility] IN M.R.#: [id number] Admission: 07/01/19 Attend Phys: Atilio Garcia MD Discharge: Date of : 33 Report #: [id number] THIS REPORT FOR: cc: NESSA Cheng family physician/PCP NESSA Cheng family physician/PCP Gregory Parmar PhD ~ CC: Atilio SZYMANSKI physician/PCP DATE OF SERVICE: 07/04/2019 NEUROBEHAVIORAL STATUS EXAM ATTENDING PHYSICIAN: Atilio Garcia MD ACCESS SPECIALIST: Gregory Parmar, Ph.D. EXAMINATION FINDINGS: The patient is an 84-year-old -[place] female admitted to the hospital with weakness and bloody stools. The patient was admitted to the ICU and diagnosed with acute respiratory failure, congestive heart failure, NSTEMI, AE, shock and GI bleed. She was admitted to the rehabilitation unit for comprehensive inpatient rehabilitation program to improve functional mobility and activities of daily living and self-care along with mental status. Prior to this admission, the patient was living with her in their home. Her diagnosis on admission to the rehabilitation unit includes critical illness myopathy, acute respiratory failure status post extubation, peripheral vascular disease with left 5th toe ulcer, acute exacerbation of congestive heart failure, non-ST elevation myocardial infarction, acute gastrointestinal bleed with anemia. A complete description of her medical condition and history along with medications can be found in her medical record. Neuropsychological consultation was requested to provide assistance in the assessment of cognitive and emotional status and to provide recommendations and services. 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 She reports having been a college graduate. She has two children. The patient indicates that she had never driven. However, she was independent with instrumental activities of daily living prior to this most recent medical event. TECHNIQUES UTILIZED: Clinical interview, review of medical records, staff consultation and behavioral observation, mini mental status exam 2 standard version and verbal fluency assessment (letter and category and clock drawing) and family interview -- . EXAMINATION FINDINGS: The patient was alert and cooperative with the [facility] [address] [place] [address] CONSULTATION Name: ROSAS WALDEN Room #: 503-P [facility] IN M.R.#: [id number] Admission: 07/01/19 Attend Phys: Atilio Garcia MD Discharge: Date of : 33 Report #: [id number] assessment. She accurately described events surrounding her admission. There is no evidence of aphasia. Her thoughts are logical and goal oriented. She does not report auditory or visual hallucinations. She describes her symptoms to include decreased appetite, memory and word finding. She denies subjective anxiety or depression. She also does not report a history of treatment for depression or anxiety. Performance on the MMSE 2 brief version was extremely low with a raw score of 12, T score of 28, percentile rank of 1. She was 3/3 for initial registration, 4/5 for orientation to time and 4/[address]. She was 1/3 for immediate recall of 3 items after a brief time delay and distraction. Her performance on the MMSE 2 standard version was less than 1% with a raw score of 20 and a T score of 20. She was 0/5 for serial sevens, 2/2 for naming, 1/1 for repetition, 3/3 for auditory comprehension. She could read and follow a single command and write a sentence. However, the patient could not accurately draw simple geometric design. Clock drawing suggests deficits in visual spatial construction and organization. Letter fluency was extremely low with a raw score of 8, T score of 19 and percentile rank of less than 1. Category fluency was in the borderline range with a raw score of 22, T score of 31, percentile rank of 3. Overall, total fluency was a raw score of 30, T score of 20, percentile rank of less than 1. The patient is presenting with neurocognitive deficits that include immediate recall, visual spatial construction, attention/concentration and executive functioning. 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 RECOMMENDATIONS: The patient may benefit from speech therapy to assist with cognitive stimulation and use of compensatory strategies for variability in cognition. Upon her return home, she is likely to require assistance in the management of medication, finances and nutrition. Following resolution of her acute medical condition, she may benefit from a more thorough neuropsych to clarify the extent of neurocognitive impairment. Thank you very much for allowing me to provide the consultation on this patient. <ELECTRONICALLY SIGNED> By: Gregory Parmar, PhD 07/12/19 [id number] Gregory Parmar, PhD /nt
[2019-07-12 19:20] VITALS: BP 144/62
--- NOTE | 2019-07-12 20:20 | NUR ---
ASSUMED CARE OF PT AT 0700. PT IS A&OX4 AND VITAL SIGNS ARE STABLE. PT DENIES PAIN AND PARTICIPATED IN THERAPIES AND ADL'S WITH NURSING. ABNORMAL LABS REVIEWED WITH PROVIDER AND ORDERS OBTAINED FOR IV MAGNESIUM, UNABLE TO ESTABLISH IV ACCESS. IV TEAM CONTACTED AND PLACED IV DURING SHIFT REPORT. FALL PRECAUTIONS IN PLACE AND NURSING WILL CONTINUE TO MONITOR.
--- NOTE | 2019-07-13 02:02 | NUR ---
ASSUMED PT CARE AROUND 1930. AXOX4. IV PLACED ON LFA. IV MAG COMPLTETED. VSS. NO S/S ACUTE DISTRESS NOTED OR REPORTED AT THIS TIME. WILL CONT TO MONITOR FOR ANY CHANGES IN CONDITION.
[2019-07-13 06:30] LABS: CREATININE 0.9 mg/dL (0.6-1.0); MAGNESIUM 1.3 mg/dL (1.8-2.4); POTASSIUM 3.5 mmol/L (3.5-5.1)
[2019-07-13 07:45] VITALS: BP 144/53
[2019-07-13 19:05] VITALS: BP 163/61
--- NOTE | 2019-07-13 20:08 | NUR ---
RECEIVED REPORT AND ASSUMED CARE AT NOON. PT UP IN WC IN DINING ROOM EATING LUNCH WITH . NO C/O VOICED. AT 1700 DRESSING CHANGED TO LT HEEL AND EDUCATION PROVIDED TO PT AND R/T PRESSURE RELIEF. CARE PROVIDED TO LT 5TH TOE WOUND WELL, AFTER THOROUGH CLEANSING OF FEET. PT WAS GIVEN THE OPPORTUNITY TO SEE A PHOTO OF HER WOUNDS TO IMPROVE COMPLIANCE WITH PRESSURE RELIEF. EDEMA NOTED, AND PER PT, SHANE HOSE WERE NOT TO BE USED DUE TO PRESSURE AND BEING TOO TIGHT, SO BLE WERE ELEVATED ON PILLOWS.
--- NOTE | 2019-07-13 23:56 | NUR ---
PT ALERT AND ORIENTED X 4. AMB TO BR WITH WALKER AND ASSIST X 1 WITHOUT DIFFICULTY. PT TAKES MEDS IN APPLESAUCE WITHOUT DIFFICULTY. PRAFO BOOTS ON. TURNED Q2H. PT DENIES PAIN OR DISCOMFORT. BED ALARM ON FOR SAFETY. PT APPEARS TO BE SLEEPING ON HOURLY ROUNDS.
[2019-07-14 07:30] VITALS: BP 145/75
--- NOTE | 2019-07-14 10:59 | NUR ---
ASSUMED CARE AT 0700, PT A&O X 4 NO ACUTE DISTRESS DURING SHIFT. VSS O2 ON RA. PT DENIES PAIN OR DISCOMFORT. MAX ASSIST X 1 USING WALKER AND WHEELCHAIR. BG ACHS SS NEEDED. INCONTINENT OF B&B, BM 07/12/19. WC TO L 5TH TOE ND L HEEL. PRAFO BOOTS ON WHEN IN BED. BLE EDEMA NOTED. SITTING IN CHAIR, CALL LIGHT WITHIN REACH, WILL CONTINUE TO MONITOR PER POC.
--- NOTE | 2019-07-14 13:06 | NUR ---
team meeting, recommendation: [facility] ( pt, ot, st and nursing). family to assist with pills and bill or facility to assist with medication.
[2019-07-14 19:12] VITALS: BP 151/72
--- NOTE | 2019-07-15 00:47 | NUR ---
PT ASSESSMENT COMPLETED AND VSS. MEDS GIVEN ORDERED AND WELL TOLERATED. FALL PRECAUTIONS IN PLACE. UP TO THE BATHROOM WITH ASST. ALDA BOOTS ON. ASST WITH REPOSITION FOR COMFORT. BARRIER CREAM APPLIED TO BUTTOCK. INSULIN GIVEN PER ORDERS. SLEEPING WELL. WILL CONTINUE TO MONITOR FREQUENTLY.
[2019-07-15 08:00] VITALS: BP 179/82
--- NOTE | 2019-07-15 11:49 | NUR ---
ASSUMED CARE AT 0700, PT A&O X 4, NO ACUTE DISTRESS NOTED. VSS 02 ON RA. PT DENIES PAIN OR DISCOMFORT. WC TO LEFT 5TH TOE WITH BETADINE, OPEN TO AIR AND OPTIFOAM TO L HEEL. INCONTINENT OF B&B AT TIMES, BM THIS MORNING. BG BID, SITTING IN CHAIR, CALL LIGHT WITHIN REACH, WILL CONTINUE TO MONITOR PER POC.
--- NOTE | 2019-07-15 14:32 | NUR ---
devang spoke with mei on pt contact list, she called with question about dc tomorrow. education on when dc tomorrow, family can come to hospital and staff will bring her to the car for dc. " would like list of dc medication please. my will be getting her, you can call him if needed. thank you for calling back. call marshall on time for dc tomorrow"/mei. devang called [facility] and was told no they moved into [place], devang spoke with [facility] in [place], " no paper work that has to be done before she comes, will have to scree her before she goes into the building."/mei.
[2019-07-15] MEDS ORDERED: LOPRESSOR25 PO (17:34)
[2019-07-15] MEDS ORDERED: PROTONIX40 M1 PO (17:34)
[2019-07-15] MEDS ORDERED: VITAMIN B-12500 MCG PO (17:34)
[2019-07-15] MEDS ORDERED: CLARITIN10 MG PO (17:34)
[2019-07-15] MEDS ORDERED: TORSEMIDE20 MG PO (17:34)
[2019-07-15] MEDS ORDERED: MAGOX 400400 MG PO (17:34)
[2019-07-15] MEDS ORDERED: CLOPIDOGREL75 MG PO (17:34)
[2019-07-15] MEDS ORDERED: KLOR-CON 1010 MEQ PO (17:34)
[2019-07-15] MEDS ORDERED: TYLENOL325 MG PO (17:34)
[2019-07-15 20:00] VITALS: BP 147/73
--- NOTE | 2019-07-15 23:37 | NUR ---
PT ASSESSMENT COMPLETED AND VSS. MEDS GIVEN ORDERED AND WELL TOLERATED. FALL PRECAUTIONS IN PLACE. UP TO THE BATHROOM WITH ASST/GAIT/WALKER. CREAMS APPLIED TO BUTTOM AND BACK ORDERED. ASST WITH REPOSITION FOR COMFORT. SLEEPING WELL. WILL CONTINUE TO MONITOR FREQUENTLY.
--- NOTE | 2019-07-16 09:37 | NUR ---
ASSUMED CARES AT 0700. PT AWAKE, ALERT AND ORIENTED*4. DENIES PAIN. VITALS REMAIN STABLE. BLISTER ON HEEL LEFT REMAINS INTACT, PRAFO BOOT IN PLACE WHEN IN BED, BETADINE APPLIED TO SITE. PT UP WITH 1 MIN ASSIST, GB AND WALKER AND TOLERATED WELL. CARES COMPLETED PRIOR TO DC. REPORT CALLED TO DAUGHTER. Q1H VISUAL CHECKS. CALL LIGHT WITHIN REACH. FALL PRECAUTIONS IN PLACE
[2019-07-16 09:43] VITALS: BP 145/69
[2019-07-16 10:11] VITALS: BP 145/69
--- NOTE | 2019-07-16 10:15 | NUR ---
pt dc today [place] [facility] [place] with [facility] today. reg davis called stated facility needs letter from MD saying "she not sick, has no nosocomial infection, no fever and no resp illness. information passed on to MD to complete. reg davis will pick her up at [facility] entrance. family would like copy of dc orders.
--- NOTE | 2019-07-16 11:39 | NUR ---
PT DISCHARGING TODAY TO HOME AT [facility] [place] WITH [facility]. FAXED DC ORDERS/SUMMARY SPOKE WITH HOPE IN INTAKE SHE RECEIVED ORDERS AND WILL NOTIFY PT TIME OF VISITS.
== END 2019-07-16 11:23 | disposition home health service (06) | DRG 91 ==
PROVIDERS: Internal Medicine; Nurse Practitioner; Nurse Practitioner Adult Health; Nurse Practitioner Family; ADMIT Physical Medicine & Rehabilitation
DX: G72.81 Critical illness myopathy (principal); J96.00 Acute respiratory failure, unspecified whether with hypoxia or hypercapnia; I21.4 Non-ST elevation (NSTEMI) myocardial infarction; I50.43 Acute on chronic combined systolic (congestive) and diastolic (congestive) heart failure; A41.9 Sepsis, unspecified organism; D64.9 Anemia, unspecified; I73.9 Peripheral vascular disease, unspecified; L97.529 Non-pressure chronic ulcer of other part of left foot with unspecified severity; R41.9 Unspecified symptoms and signs involving cognitive functions and awareness; I25.10 Atherosclerotic heart disease of native coronary artery without angina pectoris; K26.9 Duodenal ulcer, unspecified as acute or chronic, without hemorrhage or perforation; I11.0 Hypertensive heart disease with heart failure; E11.51 Type 2 diabetes mellitus with diabetic peripheral angiopathy without gangrene; E78.00 Pure hypercholesterolemia, unspecified; N28.9 Disorder of kidney and ureter, unspecified; R00.0 Tachycardia, unspecified; E87.6 Hypokalemia; E83.42 Hypomagnesemia
CPT/HCPCS: 10112

== ENCOUNTER → 2019-10-23 | Outpatient (CLI) | payer OTHER ==
[~2019-10-23] MED LIST changes: +ASA81BEC PO; +CLARITIN10 MG PO; +CLOPIDOGREL75 MG PO; +KLOR-CON 1010 MEQ PO; +LIPITOR40 MG PO; +LOPRESSOR25 PER TUBE; +LOPRESSOR25 PO; +MAGOX 400400 MG PO; +PROTONIX40 M1 PO; +TORSEMIDE20 MG PO; +TYLENOL325 MG PO; +VITAMIN B-12500 MCG PO
== END ==
LOC: SJCVCIMAG 09:09
PROVIDERS: ATTEND Emergency Medicine
DX: T82.856A Stenosis of peripheral vascular stent, initial encounter (principal); I70.203 Unspecified atherosclerosis of native arteries of extremities, bilateral legs; Y83.8 Other surgical procedures as the cause of abnormal reaction of the patient, or of later complication, without mention of misadventure at the time of the procedure; Y92.89 Other specified places as the place of occurrence of the external cause

== ENCOUNTER → 2019-11-03 | Outpatient (CLI) | payer OTHER ==
[~2019-11-03] MED LIST changes: +HYDROCHLOROTH12.5 M2 PO; +METFORMIN HCL1000 MG PO; +NIFEDIPINE ER60 M1 PO; +QUINAPRIL HCL40 MG PO; +ZOCOR 20 MG TAB20 M1 PO
== END ==
LOC: HYPER 06:22
PROVIDERS: ATTEND Emergency Medicine
DX: E11.621 Type 2 diabetes mellitus with foot ulcer (principal); L89.623 Pressure ulcer of left heel, stage 3; L97.421 Non-pressure chronic ulcer of left heel and midfoot limited to breakdown of skin; E11.43 Type 2 diabetes mellitus with diabetic autonomic (poly)neuropathy; E11.51 Type 2 diabetes mellitus with diabetic peripheral angiopathy without gangrene; E11.311 Type 2 diabetes mellitus with unspecified diabetic retinopathy with macular edema; H91.90 Unspecified hearing loss, unspecified ear; I11.0 Hypertensive heart disease with heart failure; I50.9 Heart failure, unspecified; I25.2 Old myocardial infarction; M19.90 Unspecified osteoarthritis, unspecified site; Z79.4 Long term (current) use of insulin; Z79.01 Long term (current) use of anticoagulants; Z95.5 Presence of coronary angioplasty implant and graft

== ENCOUNTER → 2019-11-04 | Outpatient (CLI) | payer OTHER ==
[~2019-11-04] VITALS: Ht 162.6 cm; Wt 57.6 kg
[2019-11-04 09:16] LABS: HEMATOCRIT 35.6 % (37.0-47.0); HEMOGLOBIN 11.9 gm/dL (12.0-15.0); MCH 28.5 pg (26.0-34.0); MCHC 33.5 g/dL (28.0-37.0); MCV 85.3 fL (80.0-100.0); RBC 4.17 mil/uL (4.20-5.00); RDW 17.2 % (10.5-14.5); WBC 5.6 thou/uL (4.0-11.0)
[2019-11-04 09:28] VITALS: BP 169/67
[2019-11-04 09:28] LABS: CALCIUM 9.9 mg/dL (8.5-10.1); CREATININE 0.9 mg/dL (0.6-1.0); POTASSIUM 3.6 mmol/L (3.5-5.1)
== END | disposition home or self-care (01) ==
LOC: CATH 07:59
PROVIDERS: ATTEND Nuclear Medicine Nuclear Cardiology
DX: I70.248 Atherosclerosis of native arteries of left leg with ulceration of other part of lower leg (principal); I70.213 Atherosclerosis of native arteries of extremities with intermittent claudication, bilateral legs; I70.1 Atherosclerosis of renal artery; L97.929 Non-pressure chronic ulcer of unspecified part of left lower leg with unspecified severity; I10 Essential (primary) hypertension; I25.10 Atherosclerotic heart disease of native coronary artery without angina pectoris; E11.9 Type 2 diabetes mellitus without complications; I25.2 Old myocardial infarction; E78.00 Pure hypercholesterolemia, unspecified; Z98.890 Other specified postprocedural states; Z79.899 Other long term (current) drug therapy; Z79.82 Long term (current) use of aspirin; E78.5 Hyperlipidemia, unspecified

== ENCOUNTER → 2019-11-10 | Outpatient (CLI) | payer OTHER | LOC: HYPER 09:55 | PROVIDERS: ATTEND Emergency Medicine | DX: E11.621 Type 2 diabetes mellitus with foot ulcer (principal); L89.623 Pressure ulcer of left heel, stage 3; L97.421 Non-pressure chronic ulcer of left heel and midfoot limited to breakdown of skin; E11.51 Type 2 diabetes mellitus with diabetic peripheral angiopathy without gangrene; E11.43 Type 2 diabetes mellitus with diabetic autonomic (poly)neuropathy; E11.311 Type 2 diabetes mellitus with unspecified diabetic retinopathy with macular edema; H91.90 Unspecified hearing loss, unspecified ear; I11.0 Hypertensive heart disease with heart failure; I50.9 Heart failure, unspecified; I25.2 Old myocardial infarction; M19.90 Unspecified osteoarthritis, unspecified site; Z79.4 Long term (current) use of insulin; Z79.01 Long term (current) use of anticoagulants; Z95.5 Presence of coronary angioplasty implant and graft ==

== ENCOUNTER → 2019-11-17 | Outpatient (CLI) | payer OTHER | LOC: HYPER 10:05 | PROVIDERS: ATTEND Emergency Medicine | DX: E11.621 Type 2 diabetes mellitus with foot ulcer (principal); L89.623 Pressure ulcer of left heel, stage 3; L97.422 Non-pressure chronic ulcer of left heel and midfoot with fat layer exposed; E11.51 Type 2 diabetes mellitus with diabetic peripheral angiopathy without gangrene; E11.43 Type 2 diabetes mellitus with diabetic autonomic (poly)neuropathy; L84 Corns and callosities; E11.311 Type 2 diabetes mellitus with unspecified diabetic retinopathy with macular edema; M19.90 Unspecified osteoarthritis, unspecified site; I11.0 Hypertensive heart disease with heart failure; I50.9 Heart failure, unspecified; I25.2 Old myocardial infarction; Z79.01 Long term (current) use of anticoagulants; Z79.4 Long term (current) use of insulin; Z95.5 Presence of coronary angioplasty implant and graft ==

== ENCOUNTER → 2019-12-01 | Outpatient (CLI) | payer OTHER | LOC: HYPER 10:33 | PROVIDERS: ATTEND Emergency Medicine | DX: E11.621 Type 2 diabetes mellitus with foot ulcer (principal); L89.623 Pressure ulcer of left heel, stage 3; L97.421 Non-pressure chronic ulcer of left heel and midfoot limited to breakdown of skin; E11.51 Type 2 diabetes mellitus with diabetic peripheral angiopathy without gangrene; E11.43 Type 2 diabetes mellitus with diabetic autonomic (poly)neuropathy; E11.311 Type 2 diabetes mellitus with unspecified diabetic retinopathy with macular edema; H91.90 Unspecified hearing loss, unspecified ear; I11.0 Hypertensive heart disease with heart failure; I50.9 Heart failure, unspecified; I25.2 Old myocardial infarction; M19.90 Unspecified osteoarthritis, unspecified site; Z79.4 Long term (current) use of insulin; Z79.01 Long term (current) use of anticoagulants; Z95.5 Presence of coronary angioplasty implant and graft ==

== ENCOUNTER 2019-12-14 12:04 | Emergency (ER) | payer OTHER ==
[~2019-12-14] VITALS: Ht 162.6 cm; Wt 57.6 kg
[2019-12-14 13:29] LABS: ABSOLUTE NEUTROPHILS 2.9 thou/uL (1.4-8.2); BASOPHILS 0.7 % (0.0-2.0); EOSINOPHILS 1.2 % (0.0-3.0); HEMATOCRIT 35.3 % (37.0-47.0); HEMOGLOBIN 11.6 gm/dL (12.0-15.0); LYMPHOCYTES 27.2 % (24.0-44.0); MCH 29.1 pg (26.0-34.0); MCV 88.2 fL (80.0-100.0); MONOCYTES 8.9 % (1.0-8.0); PLATELET COUNT 222 thou/uL (150-400); RDW 15.6 % (10.5-14.5); WBC 4.6 thou/uL (4.0-11.0)
[2019-12-14 13:31] LABS: CALCIUM 9.4 mg/dL (8.5-10.1); CREATININE 1.2 mg/dL (0.6-1.0); POTASSIUM 4.1 mmol/L (3.5-5.1)
[2019-12-14 13:41] LABS: ALBUMIN 3.7 g/dL (3.4-5.0); TOTAL BILIRUBIN 0.3 mg/dL (0.2-1.0); TOTAL PROTEIN 7.7 g/dL (6.4-8.2); TROPONIN-I 0.32 ng/mL (<0.06)
[2019-12-14 13:44] LABS: URINE BILIRUBIN NEGATIVE (Negative); URINE BLOOD NEGATIVE (Negative); URINE CLARITY CLEAR; URINE COLOR YELLOW; URINE GLUCOSE-RANDOM* 1+ (Negative); URINE KETONES NEGATIVE (Negative); URINE LEUKOCYTES-REFLEX NEGATIVE (Negative); URINE NITRITE-REFLEX NEGATIVE (Negative); URINE PROTEIN (DIPSTICK) NEGATIVE (Negative); URINE UROBILINOGEN 0.2 E.U./dl (0.2-1.0)
[2019-12-14 16:15] VITALS: BP 143/68
== END 2019-12-14 16:31 | disposition home or self-care (01) ==
LOC: ER 12:04
PROVIDERS: Student in an Organized Health Care Education/Training Program
DX: E11.65 Type 2 diabetes mellitus with hyperglycemia (principal); I10 Essential (primary) hypertension; E78.00 Pure hypercholesterolemia, unspecified; E11.51 Type 2 diabetes mellitus with diabetic peripheral angiopathy without gangrene; L97.419 Non-pressure chronic ulcer of right heel and midfoot with unspecified severity; I25.10 Atherosclerotic heart disease of native coronary artery without angina pectoris; I25.2 Old myocardial infarction; Z79.899 Other long term (current) drug therapy; Z79.82 Long term (current) use of aspirin

== ENCOUNTER → 2019-12-15 | Outpatient (CLI) | payer OTHER | LOC: HYPER 10:04 | PROVIDERS: ATTEND Emergency Medicine | DX: E11.621 Type 2 diabetes mellitus with foot ulcer (principal); L89.623 Pressure ulcer of left heel, stage 3; L97.422 Non-pressure chronic ulcer of left heel and midfoot with fat layer exposed; E11.51 Type 2 diabetes mellitus with diabetic peripheral angiopathy without gangrene; E11.43 Type 2 diabetes mellitus with diabetic autonomic (poly)neuropathy; E11.311 Type 2 diabetes mellitus with unspecified diabetic retinopathy with macular edema; L84 Corns and callosities; H91.90 Unspecified hearing loss, unspecified ear; I11.0 Hypertensive heart disease with heart failure; I50.9 Heart failure, unspecified; I25.2 Old myocardial infarction; M19.90 Unspecified osteoarthritis, unspecified site; Z79.4 Long term (current) use of insulin; Z79.01 Long term (current) use of anticoagulants; Z95.5 Presence of coronary angioplasty implant and graft ==

== ENCOUNTER → 2019-12-23 | Outpatient (CLI) | payer OTHER | LOC: HYPER 10:42 | PROVIDERS: ATTEND Emergency Medicine | DX: E11.621 Type 2 diabetes mellitus with foot ulcer (principal); L89.623 Pressure ulcer of left heel, stage 3; L97.422 Non-pressure chronic ulcer of left heel and midfoot with fat layer exposed; L84 Corns and callosities; E11.311 Type 2 diabetes mellitus with unspecified diabetic retinopathy with macular edema; E11.51 Type 2 diabetes mellitus with diabetic peripheral angiopathy without gangrene; E11.43 Type 2 diabetes mellitus with diabetic autonomic (poly)neuropathy; H91.90 Unspecified hearing loss, unspecified ear; I11.0 Hypertensive heart disease with heart failure; I50.9 Heart failure, unspecified; I25.2 Old myocardial infarction; M19.90 Unspecified osteoarthritis, unspecified site; Z95.5 Presence of coronary angioplasty implant and graft; Z79.4 Long term (current) use of insulin; Z79.01 Long term (current) use of anticoagulants; Z79.84 Long term (current) use of oral hypoglycemic drugs ==

== ENCOUNTER → 2020-01-08 | Outpatient (CLI) | payer OTHER | LOC: HYPER 09:39 | PROVIDERS: ATTEND Emergency Medicine | DX: E11.621 Type 2 diabetes mellitus with foot ulcer (principal); L89.623 Pressure ulcer of left heel, stage 3; L97.422 Non-pressure chronic ulcer of left heel and midfoot with fat layer exposed; L84 Corns and callosities; E11.311 Type 2 diabetes mellitus with unspecified diabetic retinopathy with macular edema; E11.51 Type 2 diabetes mellitus with diabetic peripheral angiopathy without gangrene; E11.43 Type 2 diabetes mellitus with diabetic autonomic (poly)neuropathy; H91.90 Unspecified hearing loss, unspecified ear; I11.0 Hypertensive heart disease with heart failure; I50.9 Heart failure, unspecified; I25.2 Old myocardial infarction; M19.90 Unspecified osteoarthritis, unspecified site; Z95.5 Presence of coronary angioplasty implant and graft; Z79.4 Long term (current) use of insulin; Z79.01 Long term (current) use of anticoagulants; Z79.84 Long term (current) use of oral hypoglycemic drugs ==

== ENCOUNTER → 2020-01-28 | Outpatient (CLI) | payer OTHER | LOC: HYPER 10:25 | PROVIDERS: ATTEND Emergency Medicine | DX: E11.621 Type 2 diabetes mellitus with foot ulcer (principal); L89.623 Pressure ulcer of left heel, stage 3; L97.422 Non-pressure chronic ulcer of left heel and midfoot with fat layer exposed; L84 Corns and callosities; E11.51 Type 2 diabetes mellitus with diabetic peripheral angiopathy without gangrene; E11.43 Type 2 diabetes mellitus with diabetic autonomic (poly)neuropathy; E11.311 Type 2 diabetes mellitus with unspecified diabetic retinopathy with macular edema; H91.90 Unspecified hearing loss, unspecified ear; I11.0 Hypertensive heart disease with heart failure; I50.9 Heart failure, unspecified; I25.2 Old myocardial infarction; M19.90 Unspecified osteoarthritis, unspecified site; Z95.5 Presence of coronary angioplasty implant and graft; Z79.4 Long term (current) use of insulin; Z79.01 Long term (current) use of anticoagulants ==

== ENCOUNTER → 2020-02-04 | Outpatient (CLI) | payer OTHER | LOC: HYPER 09:50 | PROVIDERS: ATTEND Emergency Medicine | DX: E11.621 Type 2 diabetes mellitus with foot ulcer (principal); L89.623 Pressure ulcer of left heel, stage 3; L97.422 Non-pressure chronic ulcer of left heel and midfoot with fat layer exposed; L84 Corns and callosities; E11.51 Type 2 diabetes mellitus with diabetic peripheral angiopathy without gangrene; E11.43 Type 2 diabetes mellitus with diabetic autonomic (poly)neuropathy; E11.311 Type 2 diabetes mellitus with unspecified diabetic retinopathy with macular edema; H91.90 Unspecified hearing loss, unspecified ear; I11.0 Hypertensive heart disease with heart failure; I50.9 Heart failure, unspecified; I25.2 Old myocardial infarction; M19.90 Unspecified osteoarthritis, unspecified site; Z95.5 Presence of coronary angioplasty implant and graft; Z79.4 Long term (current) use of insulin; Z79.01 Long term (current) use of anticoagulants ==

== ENCOUNTER → 2020-02-18 | Outpatient (CLI) | payer OTHER | LOC: HYPER 10:36 | PROVIDERS: ATTEND Emergency Medicine | DX: E11.621 Type 2 diabetes mellitus with foot ulcer (principal); L89.623 Pressure ulcer of left heel, stage 3; L97.422 Non-pressure chronic ulcer of left heel and midfoot with fat layer exposed; L84 Corns and callosities; E11.51 Type 2 diabetes mellitus with diabetic peripheral angiopathy without gangrene; E11.43 Type 2 diabetes mellitus with diabetic autonomic (poly)neuropathy; E11.311 Type 2 diabetes mellitus with unspecified diabetic retinopathy with macular edema; H91.90 Unspecified hearing loss, unspecified ear; I11.0 Hypertensive heart disease with heart failure; I50.9 Heart failure, unspecified; I25.2 Old myocardial infarction; M19.90 Unspecified osteoarthritis, unspecified site; Z79.4 Long term (current) use of insulin; Z79.01 Long term (current) use of anticoagulants; Z95.5 Presence of coronary angioplasty implant and graft ==

== ENCOUNTER → 2020-03-03 | Outpatient (CLI) | payer OTHER | LOC: HYPER 10:34 | PROVIDERS: ATTEND Emergency Medicine | DX: E11.621 Type 2 diabetes mellitus with foot ulcer (principal); L89.623 Pressure ulcer of left heel, stage 3; L97.422 Non-pressure chronic ulcer of left heel and midfoot with fat layer exposed; L84 Corns and callosities; E11.51 Type 2 diabetes mellitus with diabetic peripheral angiopathy without gangrene; E11.43 Type 2 diabetes mellitus with diabetic autonomic (poly)neuropathy; E11.311 Type 2 diabetes mellitus with unspecified diabetic retinopathy with macular edema; H91.90 Unspecified hearing loss, unspecified ear; I11.0 Hypertensive heart disease with heart failure; I50.9 Heart failure, unspecified; I25.2 Old myocardial infarction; M19.90 Unspecified osteoarthritis, unspecified site; Z79.4 Long term (current) use of insulin; Z79.01 Long term (current) use of anticoagulants; Z95.5 Presence of coronary angioplasty implant and graft ==

== ENCOUNTER → 2020-03-10 | Outpatient (CLI) | payer OTHER | LOC: HYPER 10:27 | PROVIDERS: ATTEND Emergency Medicine | DX: E11.621 Type 2 diabetes mellitus with foot ulcer (principal); L89.623 Pressure ulcer of left heel, stage 3; L97.422 Non-pressure chronic ulcer of left heel and midfoot with fat layer exposed; E11.51 Type 2 diabetes mellitus with diabetic peripheral angiopathy without gangrene; E11.43 Type 2 diabetes mellitus with diabetic autonomic (poly)neuropathy; E11.311 Type 2 diabetes mellitus with unspecified diabetic retinopathy with macular edema; L84 Corns and callosities; H91.90 Unspecified hearing loss, unspecified ear; I11.0 Hypertensive heart disease with heart failure; I50.9 Heart failure, unspecified; I25.2 Old myocardial infarction; M19.90 Unspecified osteoarthritis, unspecified site; Z79.4 Long term (current) use of insulin; Z79.01 Long term (current) use of anticoagulants; Z95.5 Presence of coronary angioplasty implant and graft ==

== ENCOUNTER → 2020-03-17 | Outpatient (CLI) | payer OTHER | LOC: HYPER 10:31 | PROVIDERS: ATTEND Emergency Medicine | DX: E11.621 Type 2 diabetes mellitus with foot ulcer (principal); L89.623 Pressure ulcer of left heel, stage 3; L97.421 Non-pressure chronic ulcer of left heel and midfoot limited to breakdown of skin; L84 Corns and callosities; E11.51 Type 2 diabetes mellitus with diabetic peripheral angiopathy without gangrene; E11.43 Type 2 diabetes mellitus with diabetic autonomic (poly)neuropathy; E11.311 Type 2 diabetes mellitus with unspecified diabetic retinopathy with macular edema; H91.90 Unspecified hearing loss, unspecified ear; I11.0 Hypertensive heart disease with heart failure; I50.9 Heart failure, unspecified; I25.2 Old myocardial infarction; M19.90 Unspecified osteoarthritis, unspecified site; Z79.4 Long term (current) use of insulin; Z79.01 Long term (current) use of anticoagulants; Z95.5 Presence of coronary angioplasty implant and graft ==

== ENCOUNTER → 2020-03-31 | Outpatient (CLI) | payer OTHER | LOC: HYPER 12:53 | PROVIDERS: ATTEND Emergency Medicine | DX: E11.621 Type 2 diabetes mellitus with foot ulcer (principal); L89.623 Pressure ulcer of left heel, stage 3; L97.422 Non-pressure chronic ulcer of left heel and midfoot with fat layer exposed; E11.51 Type 2 diabetes mellitus with diabetic peripheral angiopathy without gangrene; E11.43 Type 2 diabetes mellitus with diabetic autonomic (poly)neuropathy; E11.311 Type 2 diabetes mellitus with unspecified diabetic retinopathy with macular edema; L84 Corns and callosities; H91.90 Unspecified hearing loss, unspecified ear; I11.0 Hypertensive heart disease with heart failure; I50.9 Heart failure, unspecified; I25.2 Old myocardial infarction; M19.90 Unspecified osteoarthritis, unspecified site; Z79.01 Long term (current) use of anticoagulants; Z79.4 Long term (current) use of insulin; Z95.5 Presence of coronary angioplasty implant and graft ==

== ENCOUNTER → 2020-04-14 | Outpatient (CLI) | payer OTHER | LOC: HYPER 10:44 | PROVIDERS: ATTEND Emergency Medicine | DX: E11.621 Type 2 diabetes mellitus with foot ulcer (principal); L89.623 Pressure ulcer of left heel, stage 3; L97.422 Non-pressure chronic ulcer of left heel and midfoot with fat layer exposed; L84 Corns and callosities; E11.51 Type 2 diabetes mellitus with diabetic peripheral angiopathy without gangrene; E11.43 Type 2 diabetes mellitus with diabetic autonomic (poly)neuropathy; E11.311 Type 2 diabetes mellitus with unspecified diabetic retinopathy with macular edema; H91.90 Unspecified hearing loss, unspecified ear; I11.0 Hypertensive heart disease with heart failure; I50.9 Heart failure, unspecified; I25.2 Old myocardial infarction; M19.90 Unspecified osteoarthritis, unspecified site; Z79.01 Long term (current) use of anticoagulants; Z79.4 Long term (current) use of insulin; Z95.5 Presence of coronary angioplasty implant and graft ==

== ENCOUNTER → 2020-05-04 | Outpatient (CLI) | payer OTHER | LOC: HYPER 10:36 | PROVIDERS: ATTEND Emergency Medicine | DX: E11.621 Type 2 diabetes mellitus with foot ulcer (principal); L89.623 Pressure ulcer of left heel, stage 3; L97.422 Non-pressure chronic ulcer of left heel and midfoot with fat layer exposed; L84 Corns and callosities; E11.51 Type 2 diabetes mellitus with diabetic peripheral angiopathy without gangrene; E11.43 Type 2 diabetes mellitus with diabetic autonomic (poly)neuropathy; E11.311 Type 2 diabetes mellitus with unspecified diabetic retinopathy with macular edema; H91.90 Unspecified hearing loss, unspecified ear; I11.0 Hypertensive heart disease with heart failure; I50.9 Heart failure, unspecified; I25.2 Old myocardial infarction; M19.90 Unspecified osteoarthritis, unspecified site; Z79.01 Long term (current) use of anticoagulants; Z79.4 Long term (current) use of insulin; Z95.5 Presence of coronary angioplasty implant and graft ==

== ENCOUNTER → 2020-05-25 | Outpatient (CLI) | payer OTHER | LOC: HYPER 13:31 | PROVIDERS: ATTEND Emergency Medicine | DX: E11.621 Type 2 diabetes mellitus with foot ulcer (principal); L89.623 Pressure ulcer of left heel, stage 3; L97.422 Non-pressure chronic ulcer of left heel and midfoot with fat layer exposed; L84 Corns and callosities; E11.51 Type 2 diabetes mellitus with diabetic peripheral angiopathy without gangrene; E11.43 Type 2 diabetes mellitus with diabetic autonomic (poly)neuropathy; E11.311 Type 2 diabetes mellitus with unspecified diabetic retinopathy with macular edema; H91.90 Unspecified hearing loss, unspecified ear; I11.0 Hypertensive heart disease with heart failure; I50.9 Heart failure, unspecified; I25.2 Old myocardial infarction; M19.90 Unspecified osteoarthritis, unspecified site; Z79.01 Long term (current) use of anticoagulants; Z79.4 Long term (current) use of insulin; Z95.5 Presence of coronary angioplasty implant and graft ==